=== PATIENT | male | born 1975 | race Two or more races ===

== ENCOUNTER 2025-05-08 07:28 | Inpatient (IN) | payer MEDICAID, OTHER ==
[~2025-05-08] VITALS: Ht 172.7 cm; Wt 80.0 kg
[2025-05-08] VITALS (7 sets, daily range): BP systolic 155; BP diastolic 95; PULSE 74–102; RESP 16–24; TEMP 98.7; O2SAT 94–98
[2025-05-08] MEDS: SODIUM CHLORIDE 0.9% 1,000 ML IV ONE (08:00)
--- NOTE | 2025-05-08 08:04 | ED.PDOC ---
SOB-HPI HPI Comments 49-year-old male with PMHx CVA, HTN presents with a chief complaint of SOB and chest pain. Patient states that his pain is localized to his left chest wall, nonradiating, and describes as sharp. Patient states that he feels like something is "stuck in my throat and its causing me not to breathe". Patient is able to speak in full, complete sentences, is not wheezing or hyperventilating. Patient admits to smoking cigarettes and states that he is homeless. Chief Complaint: Shortness of Breath Time Seen by MD: 07:52 Reviewed notes: Medications, Allergies Information Source: Patient Mode of Arrival: Ambulatory Severity: Moderate Timing: Days Duration: Since onset Context: At Rest PE Risk Factors: None Prehospital treatment: None Quality: Sharp Radiation: No Radiation Past Medical History PAST MEDICAL HISTORY: CVA, HTN Surgical History: Denies all surgeries Family History Family History: Reviewed,noncontributory to illness Social History Smoker: Cigarettes Alcohol: Denies ETOH Use Drugs: Denies Drug Use Lives In: Homeless Constitutional: denies: chills, diaphoresis, fatigue, fever, malaise, sweats, weakness, others EENTM: denies: blurred vision, double vision, ear bleeding, ear discharge, ear drainage, ear pain, ear ringing, eye pain, eye redness, hearing loss, mouth pain, mouth swelling, nasal discharge, nose bleeding, nose congestion, nose pain, photophobia, tearing, throat pain, throat swelling, voice changes, others Respiratory: reports: shortness of breath; denies: cough, hemoptysis, orthopnea, SOB at rest, SOB with excertion, stridor, wheezing, others Cardiovascular: reports: chest pain; denies: dizzy spells, diaphoresis, Dyspnea on exertion, edema, irregular heart beat, left arm pain, lightheadedness, palpitations, PND, syncope, others Gastrointestinal: denies: abdomen distended, abdominal pain, blood streaked bowels, constipated, diarrhea, dysphagia, difficulty swallowing, hematemesis, melena, nausea, poor appetite, poor fluid intake, rectal bleeding, rectal pain, vomiting, others Genitourinary: denies: burning, dysuria, flank pain, frequency, hematuria, incontinence, penile discharge, penile sore, pain, testicle pain, testicle swelling, urgency, others Neurological: denies: dizziness, fainting, headache, left sided numbness, left sided weakness, numbness, paresthesia, pre-existing deficit, right sided numbness, right sided weakness, seizure, speech problems, tingling, tremors, weakness, others Musculoskeletal: denies: back pain, gout, joint pain, joint swelling, muscle pain, muscle stiffness, neck pain, others Integumetry: denies: bruises, change in color, change in hair/nails, dryness, laceration, lesions, lumps, rash, wounds, others Allergic/Immunocompromised: denies: Difficulty Healing, Frequent Infections, Hives, Itching, others Hematologic/Lymphatic: denies: anemia, blood clots, easy bleeding, easy bruising, swollen glands, others Endocrine: denies: excessive hunger, excessive sweating, excessive thirst, excessive urination, flushing, intolerance to cold, intolerance to heat, unexplained weight gain, unexplained weight loss, others Psychiatric: denies: anxiety, bipolar disorder, depression, hopeless, panic disorder, schizophrenia, sleepless, suicidal, others All Other Systems: Reviewed and Negative Physical Exam General Appearance: Mild Distress, Normal HEENT: Normal ENT Inspection, PERRL/EOMI, Pharynx Normal, TMs Normal Neck: Full Range of Motion, Non-Tender, Normal, Normal Inspection Respiratory: Chest Non-Tender, Lungs Clear, No Accessory Muscle Use, No Respiratory Distress, Normal Breath Sounds, Other (PATIENT COMPLAINING OF CHEST PAIN LEFT SHOULDER PAIN AND NECK PAIN) Cardiovascular: No Edema, No JVD, No Murmur, No Gallop, Normal Peripheral Pulses, Regular Rate/Rhythm Breast Exam: Deferred Gastrointestinal: No Organomegaly, Non Tender, No Pulsatile Mass, Normal Bowel Sounds, Soft Genitalia: Deferred Pelvic: Deferred Rectal: Deferred Extremities: No calf tenderness, Normal capillary refill, Normal inspection, Normal range of motion, Non-tender, No pedal edema Musculoskeletal : Apperance: Normal Neurologic: Alert, frame maker II-XII nml as Tested, No Motor Deficits, Normal Affect, Normal Mood, No Sensory Deficits, Other (PATIENT HAD A STROKE WITH LEFT HEMIPARESIS GETTING BETTER) Cerebellar Function: Normal Reflexes: Normal Skin: Dry, Normal Color, Warm Peripheral Pulses: 1+ carotid (R), 1+ carotid (L) Lymphatic: No Adenopathy EKG EKG : Pulse Rate (adult): 102 [place]: Normal Cardiac Rhythm: ST Was a procedure done? Was a procedure done?: No Differential Dx Differential Diagnosis: Anxiety, Myocardial infarction, Pneumonia X-Ray, Labs, Meds, VS Vital Signs Date Time Temp Pulse Resp B/P (MAP) Pulse Ox O2 Delivery O2 Flow Rate FiO2 05/08/25 12:15 155/95 05/08/25 12:14 86 18 155/95 (115) 96 05/08/25 11:30 87 18 97 Room Air 05/08/25 11:30 87 18 157/111 (126) 97 05/08/25 10:00 157/111 05/08/25 08:30 102 05/08/25 07:40 98.7 101 18 174/99 96 98.7 05/08/25 07:35 102 Lab Test 05/08/25 08:11 Range/Units White Blood Count 11.1 H 4.4-10.8 10^3/uL Red Blood Count 3.77 L 4.5-5.90 10^6/uL Hemoglobin 8.9 L 13.5-17.5 g/dL Hematocrit 27.7 L 41.0-53.0 % Mean Corpuscular Volume 73.5 L 80.0-100.0 fL Mean Corpuscular Hemoglobin 23.5 L 28.0-32.0 pg Mean Corpuscular Hemoglobin Concent 32.0 32.0-36.0 g/dL Red Cell Distribution Width 17.7 H 11.8-14.3 % Platelet Count 530 H 140-450 10^3/uL Mean Platelet Volume 7.4 6.9-10.8 fL Neutrophils (%) (Auto) 76.0 37.0-80.0 % Lymphocytes (%) (Auto) 12.5 10.0-50.0 % Monocytes (%) (Auto) 8.5 0.0-12.0 % Eosinophils (%) (Auto) 2.5 0.0-7.0 % Basophils (%) (Auto) 0.5 0.0-2.0 % Neutrophils # (Auto) 8.4 1.6-8.6 10 ^3/uL Lymphocytes # (Auto) 1.4 0.4-5.4 10 ^3/uL Monocytes # (Auto) 0.9 0-1.3 10 ^3/uL Eosinophils # (Auto) 0.3 0-0.8 10 ^3/uL Basophils # (Auto) 0.1 0-0.2 10 ^3/uL Nucleated Red Blood Cells 0.0 % Prothrombin Time 12.4 H 9.3-11.8 sec Prothrombin Time INR 1.19 H 0.9-1.15 Activated Partial Thromboplast Time 32.4 24.5-34.5 SEC D-Dimer, Quantitative 4.70 H 0.0-0.49 mg/L FEU Sodium Level 142 136-145 mmol/L Potassium Level 3.5 3.5-5.1 mmol/L Chloride Level 106 98-107 mmol/L Carbon Dioxide Level 26 20-31 mmol/L Anion Gap 10 5-15 Blood Urea Nitrogen 31 H 9-23 mg/dL Creatinine 3.87 H 0.700-1.30 mg/dL Glomerular Filtration Rate Calc 18 >90 mL/min BUN/Creatinine Ratio 8.0 L 10.0-20.0 Serum Glucose 106 74-106 mg/dL Calcium Level 8.9 8.7-10.4 mg/dL Magnesium Level 1.7 1.6-2.6 mg/dL Total Bilirubin 0.7 0.2-1.0 mg/dL Aspartate Amino Transferase (AST) 15 13-40 U/L Alanine Aminotransferase (ALT) 14 7-40 U/L Alkaline Phosphatase 167 H 46-116 U/L Troponin I High Sensitivity 45 </=54 ng/L Total Protein 7.8 5.7-8.2 g/dL Albumin 4.0 3.2-4.8 g/dL Current Medications Medications (Trade) Dose Ordered Sig/Soraya Route Start Time Stop Time Status Last Admin Aspirin 162 mg ONCE ONCE PO 05/08/25 08:00 05/08/25 08:01 DC 05/08/25 08:00 Nitroglycerin (Ntrostat Sublingual) 0.4 mg Q5MP ONCE SL 05/08/25 10:00 05/08/25 10:01 DC 05/08/25 10:00 Sodium Chloride 1,000 ml @ 150 mls/hr Q6H40M ONCE IV 05/08/25 08:00 05/08/25 14:39 DC 05/08/25 08:00 X-Ray, Labs, Meds, VS Comment Course in the emergency department patient came in because of shortness of breath and chest pain for the past few days patient has a history of CVA and hypertension EKG shows sinus tachycardia at 1:02 [address] CBC [address]41 with 76% neutrophils H&H 8.9 and 27.7 with microcytosis D-dimer elevated at 4.7 INR 1.19 GFR at 18 Magnesium 1.7 Troponin 45 Patient will be admitted for further care Patient with renal insufficiency he will be sent for V/Q scan Patient will be admitted for further care V/Q scan pending Time of 1ST Reevaluation: 08:22 Reevaluation 1ST: Unchanged Time of 2ND Reevaluation: 10:28 Reevaluation 2ND: Unchanged Patient Education/Counseling: Diagnosis, Treatment Family Education/Counseling: Diagnosis, Treatment SEPSIS Sepsis Screen Date sepsis recognized/suspect: May 08, 2025 Time Sepsis recognized/suspect: 742 Recent Procedure: No Respiratory Rate >20: No Heart Rate >90: Yes Temp<36 C (96.8 F) or >38.3 C: No SBP <90 or MAP <65 mmHG: No New Acute Mental Status Change: No Is the patient on CPAP, BIPAP,: No Physician Orders Chest Portable (05/08/25 07:56) Heplock Iv (05/08/25 07:56) Entry Level Assistant Manager (05/08/25 07:56) Blood Pressure (05/08/25 07:56) Nm Vq Scan (05/08/25 09:49) Bilat Lower Dvt (05/08/25 12:31) Vital Signs Date Time Temp Pulse Resp B/P (MAP) Pulse Ox O2 Delivery O2 Flow Rate FiO2 05/08/25 12:15 155/95 05/08/25 12:14 86 18 155/95 (115) 96 05/08/25 11:30 87 18 97 Room Air 05/08/25 11:30 87 18 157/111 (126) 97 05/08/25 10:00 157/111 05/08/25 08:30 102 05/08/25 07:40 98.7 101 18 174/99 96 98.7 05/08/25 07:35 102 Laboratory Tests Test 05/08/25 08:11 White Blood Count 11.1 10^3/uL (4.4-10.8) H Medications Medications Dose Ordered Sig/Soraya Route Start Time Stop Time Status Last Admin Dose Admin Aspirin 162 mg ONCE ONCE PO 05/08/25 08:00 05/08/25 08:01 DC 05/08/25 08:00 Nitroglycerin 0.4 mg Q5MP ONCE SL 05/08/25 10:00 05/08/25 10:01 DC 05/08/25 10:00 Sodium Chloride 1,000 ml @ 150 mls/hr Q6H40M ONCE IV 05/08/25 08:00 05/08/25 14:39 DC 05/08/25 08:00 Departure 1 Departure Time of Disposition: 10:25 Impression: Primary Impression: Acute chest pain Additional Impressions: Microcytic anemia Elevated d-dimer CKD (chronic kidney disease) stage 4, GFR 15-29 ml/min Disposition: ADMITTED INPATIENT Admit to: [facility] Condition: Fair Critical Care Note Critical Care Time?: No Stability Stability form required: No Heart Score Heart Score: Heart Score Response (Comments) Value History Slightly Suspicious 0 EKG Normal 0 Age 45-64 1 Risk Factors 1 or 2 risk factors 1 Troponin Normal limit 0 Total 2 I personally scribed for JONO AGUILAR MD ([email or web address]) on 05/08/25 at 08:04. Electronically submitted by Jean Pierre Urbano ([email or web address]). JONO AGUILAR MD May 08, 2025 08:04
--- NOTE | 2025-05-08 08:23 | ECG ---
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
--- NOTE | 2025-05-08 08:30 | DVH ---
CHEST RADIOGRAPH Indication: CP Technique: Single frontal view of the chest was obtained COMPARISON: None FINDINGS: Lines and Tubes: None Lungs: Multifocal airspace disease Pleura: No effusion. No pneumothorax. Cardiomediastinal contours: Unremarkable Bones: Unremarkable IMPRESSION: Multifocal airspace disease
[2025-05-08 08:50] LABS: Nucleated Red Blood Cells % 0.0 %
[2025-05-08 08:51] LABS: Hematocrit 27.7 % (41.0-53.0); Hemoglobin 8.9 g/dL (13.5-17.5); Mean Corpuscular Hemoglobin 23.5 pg (28.0-32.0); Mean Corpuscular Volume 73.5 fL (80.0-100.0)
[2025-05-08 09:08] LABS: Alanine Aminotransferase 14 U/L (7-40); Albumin 4.0 g/dL (3.2-4.8); Anion Gap 10 (5-15); BUN/Creatinine Ratio 8.0 (10.0-20.0); Bilirubin, Total 0.7 mg/dL (0.2-1.0); Calcium 8.9 mg/dL (8.7-10.4); Carbon Dioxide 26 mmol/L (20-31); Chloride 106 mmol/L (98-107); Glucose 106 mg/dL (74-106); Magnesium 1.7 mg/dL (1.6-2.6); Potassium 3.5 mmol/L (3.5-5.1); Sodium 142 mmol/L (136-145); Total Protein 7.8 g/dL (5.7-8.2)
[2025-05-08 09:09] LABS: Alkaline Phosphatase 167 U/L (46-116); Blood Urea Nitrogen 31 mg/dL (9-23)
[2025-05-08 09:10] LABS: INR 1.19 (0.9-1.15); Partial Thromboplastin Time 32.4 SEC (24.5-34.5); Prothrombin Time 12.4 sec (9.3-11.8)
[2025-05-08] MEDS: NITROGLYCERIN 0.4 MG SL TAB SL ONE (10:00)
--- NOTE | 2025-05-08 13:33 | DVH ---
NUCLEAR MEDICINE VENTILATION/PERFUSION LUNG SCAN. INDICATION: PULMONARY EMBOLISM TECHNIQUE: Following intravenous demonstration of 6 millicuries of technetium 99m MAA, and inhalati on of 40 mCi of Tc 99m DTPA scintigrams were obtained in multiple projections of the lungs. FINDINGS: There is normal uptake of radionuclide on both the ventilation and perfusion portions of the examinat ion. No mismatched perfusion defects are demonstrated. Uptake is normally homogeneous. IMPRESSION: Low probability for PE.
--- NOTE | 2025-05-08 14:17 | DVH ---
CLINICAL HISTORY: Bilateral lower extremity pain, shortness of breath R/O DVT TECHNIQUE: Color and duplex doppler imaging of the bilateral lower extremity veins was performed. Ves suman compression if possible was also performed. WID: COMPARISON: None FINDINGS: Right Lower Extremity: Right common femoral vein: Normal compressibility and flow. Right femoral vein: Normal compressibility and flow. Right popliteal vein: Normal compressibility and flow. A partially compressible peroneal vein is seen in the right calf with linear echogenicities. Proximal calf veins are otherwise normally compressible. Left Lower Extremity: Left common femoral vein: Normal compressibility and flow. Left femoral vein: Normal compressibility and flow. Left popliteal vein: Normal compressibility and flow. Proximal calf veins are normally compressible. IMPRESSION: Subacute to chronic appearing thrombus in the right calf peroneal vein with linear echogenicity withi n the lumen and partially compressible vein. No evidence of DVT in the left lower extremity
[2025-05-08] MEDS ORDERED: NITROGLYCERIN 0.4 MG SL TAB SL PRN (15:45)
--- NOTE | 2025-05-08 16:06 | DVHHPRES ---
History of Present Illness Resident Creating Document: SPENCER FELDMAN RESIDENT History of Present Illness Patient is a 49-year-old male with prior medical history of hypertension and 2 prior CVAs in 2019, who presents to the ED with chief complaint of shortness of breath. Patient and are AOx4, but are poor historians. Per the patient and his , Jessica, patient has had chronic cough with clear expectoration since August, which for the last 3 months has been associated to increasing shortness of breath, clubbing of finger nails, and left chest pain. Yesterday, they state the patient's lips became cyanotic and worsening of chest pain described as sharp pain localized in left chest wall, non-radiating, intensity of 7/10, with no aggravating nor relieving factors, which prompted him to seek medical care. He denies fever, nausea, vomiting, and palpitations. On evaluation in the ED, patient was found in mild distress, afebrile, tachycardic, and hyper tensive. 12 Lead EKG in the ED shows sinus tachycardia. Initial labs show WBCs 11.1, hemoglobin 8.9, hematocrit 27.7, platelets 530, creatinine 3.87, ALP 167, troponins negative, PT 12.4, INR 1.19, and D-dimer 4.7. Chest x-ray shows multifocal airspace disease. Due to presence of chest pain, tachycardia, and elevated D-dimer, V/Q mismatch scan was ordered to evaluate for possible PE, which showed low probability for PE. He is being admitted for further work up and monitoring and will be started on IV antibiotics, IV fluids, and breathing treatments. 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 Past Surgical History: Other (Right tibial fracture repair with possible skin graft) Smoke: <1 pack per day (Smoked 2 packs of cigarettes a day for 20 years, now smokes 4 cigarettes a day) ALCOHOL: none Drugs: None Lives: with Family Domestic Violence: Neg Review of Systems Constitutional: No: Fever, Chills, Sweats, Weakness, Malaise, Other Eyes: No: Pain, Vision change, Conjunctivae inflammation, Eyelid inflammation, Other, Redness ENT: Ear pain Respiratory: Cough, Shortness of breath, Pleuritic Pain, Wheezing Cardiovascular: Chest Pain Gastrointestinal: No: Nausea, Vomiting, Abdominal Pain, Diarrhea, Constipation, Melena, Hematochezia, Other Genitourinary: No Dysuria, No Frequency, No Incontinence, No Hematuria, No Retention, No Other Musculoskeletal: shoulder pain Skin: No: Rash, Lesions, Jaundice, Bruising, Other Neurological: No: Weakness, Numbness, Incoordination, Change in speech, Confusion, Seizures, Other Allergies: Coded Allergies: NO KNOWN ALLERGIES (Unverified , 05/08/25) Medications Current Medications Medications Dose Ordered Sig/Soraya Route Start Time Stop Time Status Last Admin Dose Admin Nitroglycerin 0.4 mg Q5MINP PRN SL 05/08/25 15:45 Morphine Sulfate 2 mg Q30M PRN IV 05/08/25 15:45 Ipratropium [place] 0.5 mg Q6HR NEB 05/08/25 15:45 Albuterol 1.25 mg Q6HR NEB 05/08/25 15:45 Azithromycin 250 ml @ 125 mls/hr DAILY IV 05/09/25 10:00 Ceftriaxone Sodium 50 ml @ 100 mls/hr DAILY@09 IV 05/09/25 09:00 Heparin Sodium/ Dextrose 250 ml @ 11.7 mls/hr [id number] IV 05/08/25 16:00 UNV Nifedipine 30 mg DAILY PO 05/09/25 10:00 UNV Exam Vital Signs Vital Signs Date Time Temp Pulse Resp B/P (MAP) Pulse Ox O2 Delivery O2 Flow Rate FiO2 05/08/25 15:52 98.7 86 18 155/95 96 0.0 21 98.7 05/08/25 11:30 Room Air Exam General: Patient alert and oriented in person place and time. Patient fo llowing commands HEENT: Normocephalic, atraumatic, reactive pupils, EOM intact, pink conjunctiva, non-icteric sclera, pink moist mucous membrane Respiratory/pulmonary: Bilateral chest expansion, no pain on palpation of chest wall, vesicular murmurs present in almost all lung lackey, minor bilateral wheezing in lower lung lackey, no associated crackles. Abdomen: Abdomen nondistended, normal bowel sounds, soft, no pain to palpation in any of the abdominal quadrants, no palpable masses. Extremities: Clubbing of finger nails on both hands, no cyanosis, bilateral lower extremity edema +2, right calf is warm to the touch, deformity of right ankle secondary to previous trauma and surgery Peripheral pulses: normal pulses Skin: No rashes or pruritus Neurological: Intact cranial nerves with no focal neurologic deficits Labs/Xrays Labs Test 05/08/25 08:11 Range/Units White Blood Count 11.1 H 4.4-10.8 10^3/uL Red Blood Count 3.77 L 4.5-5.90 10^6/uL Hemoglobin 8.9 L 13.5-17.5 g/dL Hematocrit 27.7 L 41.0-53.0 % Mean Corpuscular Volume 73.5 L 80.0-100.0 fL Mean Corpuscular Hemoglobin 23.5 L 28.0-32.0 pg Mean Corpuscular Hemoglobin Concent 32.0 32.0-36.0 g/dL Red Cell Distribution Width 17.7 H 11.8-14.3 % Platelet Count 530 H 140-450 10^3/uL Mean Platelet Volume 7.4 6.9-10.8 fL Neutrophils (%) (Auto) 76.0 37.0-80.0 % Lymphocytes (%) (Auto) 12.5 10.0-50.0 % Monocytes (%) (Auto) 8.5 0.0-12.0 % Eosinophils (%) (Auto) 2.5 0.0-7.0 % Basophils (%) (Auto) 0.5 0.0-2.0 % Neutrophils # (Auto) 8.4 1.6-8.6 10 ^3/uL Lymphocytes # (Auto) 1.4 0.4-5.4 10 ^3/uL Monocytes # (Auto) 0.9 0-1.3 10 ^3/uL Eosinophils # (Auto) 0.3 0-0.8 10 ^3/uL Basophils # (Auto) 0.1 0-0.2 10 ^3/uL Nucleated Red Blood Cells 0.0 % Prothrombin Time 12.4 H 9.3-11.8 sec Prothrombin Time INR 1.19 H 0.9-1.15 Activated Partial Thromboplast Time 32.4 24.5-34.5 SEC D-Dimer, Quantitative 4.70 H 0.0-0.49 mg/L FEU Sodium Level 142 136-145 mmol/L Potassium Level 3.5 3.5-5.1 mmol/L Chloride Level 106 98-107 mmol/L Carbon Dioxide Level 26 20-31 mmol/L Anion Gap 10 5-15 Blood Urea Nitrogen 31 H 9-23 mg/dL Creatinine 3.87 H 0.700-1.30 mg/dL Glomerular Filtration Rate Calc 18 >90 mL/min BUN/Creatinine Ratio 8.0 L 10.0-20.0 Serum Glucose 106 74-106 mg/dL Calcium Level 8.9 8.7-10.4 mg/dL Magnesium Level 1.7 1.6-2.6 mg/dL Total Bilirubin 0.7 0.2-1.0 mg/dL Aspartate Amino Transferase (AST) 15 13-40 U/L Alanine Aminotransferase (ALT) 14 7-40 U/L Alkaline Phosphatase 167 H 46-116 U/L Troponin I High Sensitivity 45 </=54 ng/L Total Protein 7.8 5.7-8.2 g/dL Albumin 4.0 3.2-4.8 g/dL SEPSIS Sepsis Screen Date sepsis recognized/suspect: May 08, 2025 Time Sepsis recognized/suspect: 742 Recent Procedure: No Respiratory Rate >20: No Heart Rate >90: Yes Temp<36 C (96.8 F) or >38.3 C: No SBP <90 or MAP <65 mmHG: No New Acute Mental Status Change: No Is the patient on CPAP, BIPAP,: No Physician Orders Nm Vq Scan (05/08/25 09:49) Bilat Lower Dvt (05/08/25 12:31) Admit (05/08/25 15:32) Code Status (05/08/25 15:32) Vital Signs .PER UNIT PROTOCOL (05/08/25 15:32) Review Orders With Adm.Md (05/08/25 15:32) Notify Md Of Changes From Base (05/08/25 15:32) Advance Directive (05/08/25 15:32) Patient Condition (05/08/25 15:32) Allergies (05/08/25 15:32) Nitroglycerin Sublingual (Ntrostat Subli (05/08/25 15:45) Morphine Sulfate Injection (05/08/25 15:45) Oxygen By Nasal Cannula (05/08/25 15:32) Notify Md Of Changes From Base (05/08/25 15:32) Stat Ekg For Chest Pain (05/08/25 15:32) Renal Standard(2gna,3gk,Lopho) (05/08/25 Dinner) Urinalysis (05/08/25 15:32) Drug Screen (05/08/25 15:32) Urine Protein (05/08/25 15:32) Urine Creatinine (05/08/25 15:32) Ipratropium Medneb (Atrovent Medneb) (05/08/25 15:45) Albuterol Medneb (Ventolin Medneb) (05/08/25 15:45) Covid19 Antigen Nava (05/08/25 ) Rapid Influenza A&B (05/08/25 15:32) Azithromycin 500mg/ 250ml (Zithromax 50 (05/08/25 16:30) Azithromycin 500mg/ 250ml (Zithromax 50 (05/09/25 10:00) Ceftriaxone 1gm/50ml D5w (Rocephin) (05/08/25 15:45) Ceftriaxone 1gm/50ml D5w (Rocephin) (05/09/25 09:00) Troponin-I Hs (05/08/25 15:44) Platelet Monitoring (05/08/25 15:51) Vte Protocol Initiated (05/08/25 15:51) Heparin Per Standardized Proce (05/08/25 15:51) Discontinue All Im Injections (05/08/25 15:51) PTPTT (05/08/25 15:51) Complete Blood Count (05/08/25 15:51) Heparin Sodium (Porcine) (05/08/25 16:00) Heparin Drip/D5w 100units/Ml (05/08/25 16:00) Nifedipine Er (Procardia Xl (Time-Releas (05/08/25 16:00) Nifedipine Er (Procardia Xl (Time-Releas (05/09/25 10:00) Hemoglobin A1c (05/08/25 15:56) Lipid Panel (05/08/25 15:56) Thyroid Stimulating Hormone (05/08/25 15:56) Phosphorus (05/08/25 15:56) Magnesium (05/08/25 15:56) Blood Culture (05/08/25 15:56) Mrsa Screen (05/08/25 15:56) Urine Bacterial Culture (05/08/25 15:56) Kidney (05/08/25 15:58) Vital Signs Date Time Temp Pulse Resp B/P (MAP) Pulse Ox O2 Delivery O2 Flow Rate FiO2 05/08/25 15:52 98.7 86 18 155/95 96 0.0 21 98.7 05/08/25 12:15 155/95 05/08/25 12:14 86 18 155/95 (115) 96 05/08/25 11:30 87 18 97 Room Air 05/08/25 11:30 87 18 157/111 (126) 97 05/08/25 10:00 157/111 05/08/25 08:30 102 Laboratory Tests Test 05/08/25 08:11 White Blood Count 11.1 10^3/uL (4.4-10.8) H Medications Medications Dose Ordered Sig/Soraya Route Start Time Stop Time Status Last Admin Dose Admin Aspirin 162 mg ONCE ONCE PO 05/08/25 08:00 05/08/25 08:01 DC 05/08/25 08:00 162 MG Nitroglycerin 0.4 mg Q5MP ONCE SL 05/08/25 10:00 05/08/25 10:01 DC 05/08/25 10:00 0.4 MG Sodium Chloride 1,000 ml @ 150 mls/hr Q6H40M ONCE IV 05/08/25 08:00 05/08/25 14:39 DC 05/08/25 08:00 150 MLS/HR Assessment/Plan Assessment/Plan Assessment and Plan: Possible sepsis, likely due to pneumonia ( Gram-positive/Gram-negative ) -Chest x-ray: Multifocal airspace disease -Ceftriaxone 1 g IV daily -Azithromycin 500 mg IV daily -Blood cultures pending -Sputum cultures pending -Bolus of 150 cc normal saline Questionable COPD, spirometry unavailable, in exacerbation -Albuterol med neb 1.25 mg q.6 hours -Ipratropium med nebs 0.5 mg q.6 hours Acute chest pain, rule out ACS -Echo pending -Morphine 2 mg IV Q 30 p.r.n. -Nitroglycerin 0.4 mg sublingual p.r.n. -Aspirin 162 mg p.o. once Right distal DVT -Lower extremity venous duplex: Subacute to chronic appearing thrombus in the right calf peroneal vein with linear echogenicity within the lumen and partially compressible vein -Heparin drip Possible LIZ likely due to VMN, on questionable CKD, baseline unavaible - Monitor renal function - Avoid nephrotoxic drugs - Renal diet Microcytic anemia -monitor H&H Hypertension, uncontrolled -Nifedipine 30 mg p.o. daily History of CVA History of tobacco use - counseled on cessation of tobacco for over 20 minutes Case discussed with Dr. Martinez Goals of care discussed with the patient and his , Jessica, for over 35 minutes, they state they understand and agree. FULL CODE. Plan discussed with: Patient, Spouse (Jessica) SPENCER FELDMAN RESIDENT May 08, 2025 16:05
[2025-05-08 16:17] LABS: Hematocrit 28.0 % (41.0-53.0); Hemoglobin 9.0 g/dL (13.5-17.5); Mean Corpuscular Hemoglobin 23.7 pg (28.0-32.0); Mean Corpuscular Volume 73.6 fL (80.0-100.0); Nucleated Red Blood Cells % 0.0 %
[2025-05-08 16:31] LABS: Triglycerides 90.0 mg/dL (< 150)
[2025-05-08 16:32] LABS: INR 1.19 (0.9-1.15); Magnesium 1.7 mg/dL (1.6-2.6); Partial Thromboplastin Time 31.2 SEC (24.5-34.5); Prothrombin Time 12.4 sec (9.3-11.8)
[2025-05-08 16:33] LABS: Cholesterol 116.0 mg/dL (< 200)
[2025-05-08 16:34] LABS: HDL Cholesterol 30.0 mg/dL (40-59)
[2025-05-08] MEDS: cefTRIAXone 1GM/50ML D5W 50 ML IV ONE (17:28)
--- NOTE | 2025-05-08 17:40 | DVH ---
EXAM: US KIDNEY INDICATION: ckd TECHNIQUE: Multiple real-time sonographic images of the kidneys and bladder were obtained. COMPARISON: None Findings: Right kidney measures 9.1 cm with normal contours, increased echotexture, and normal cortical thickne ss. Nephrolithiasis. Parapelvic cysts. No evidence of hydronephrosis or solid lesions. Left kidney measures 9.3 cm with normal contours, increased echotexture, and normal cortical thicknes s. Nephrolithiasis. Simple cyst. No evidence of hydronephrosis or solid lesions. Urinary bladder is unremarkable without evidence of abnormal wall thickening, mass, or calculi. Prevo id volume 419.7 mL. Postvoid volume 0 mL. Bilateral pleural effusions. Impression: 1. Increased echogenicity of bilateral kidneys. Correlate for medical renal disease. 2. Bilateral nephrolithiasis and renal cysts. 3. Urinary bladder is unremarkable. 4. Incidentally noted bilateral pleural effusions.
[2025-05-08] MEDS: ALBUTEROL SULF 2.5 MG/0.5ML(0.5%) NEB SOLN NEB SCH (17:57)
[2025-05-08] MEDS: IPRATROPIUM BROM 0.5 MG/2.5ML INH SOL NEB SCH (17:57)
[2025-05-08] MEDS: AZITHROMYCIN 500MG/ 250ML 250 ML IV ONE (18:16)
[2025-05-08] MEDS: HEPARIN SODIUM (PORCINE) 5000 UNITS/ML 1ML VIAL IV ONE (18:32)
[2025-05-08] MEDS: HEPARIN DRIP/D5W 100UNITS/ML 250 ML IV SCH (18:36)
--- NOTE | 2025-05-08 18:47 | CONS ---
Pharmacy Clinical Information: HEPARIN DRIP PER PHARMACY SPOKE TO MILAGROS SMITH REGARDING NEW HEPARIN DRIP ORDER CURRENT aPTT: 05/08/2025 AT 0811: aPTT = 32.4 HEPARIN BOLUS 4000 UNITS IVP X1 PER MD INITIAL HEPARIN DRIP RATE: 1500 UNITS/HR ADMINISTERED ON 05/08 AT 1836 NEXT aPTT: 05/09/2025 AT 0030 MILAGROS SMITH READ BACK INITIAL HEPARIN DRIP RATE 1500 UNITS/HR LYNNE Kincaid May 08, 2025 18:47
[2025-05-08 19:51] LABS: COVID19 ANTIGEN SOFIA FIA NEGATIVE (NEGATIVE)
[2025-05-08 21:48] LABS: Urine Protein, UAD 1+ (Negative)
[2025-05-08 21:58] LABS: Protein, Urine 181.7 mg/dL (1-14)
[2025-05-08 22:04] LABS: Amphetamine Screen, Urine Pos (NEGATIVE); Barbiturate Scree,Urine Neg (NEGATIVE); Benzodiazephine Screen, Urine Neg (NEGATIVE); Cannabinoid Screen, Urine Neg (NEGATIVE); Cocaine Screen, Urine Neg (NEGATIVE); Opiate Scree,Urine Neg (NEGATIVE)
[2025-05-08 22:28] LABS: Phencyclidine Screen, Urine Neg (NEGATIVE)
[2025-05-09] VITALS (11 sets, daily range): BP systolic 125–132; BP diastolic 82–92; PULSE 76–101; RESP 17–25; TEMP 97.6–99.7; O2SAT 91–100
[2025-05-09 00:44] LABS: INR 1.2 (0.9-1.15); Partial Thromboplastin Time 56.6 SEC (24.5-34.5); Prothrombin Time 12.5 sec (9.3-11.8)
[2025-05-09 02:53] LABS: Base Excess -0.8 mmol/L (-2.0-3.0)
[2025-05-09] MEDS: MORPHINE SULFATE INJ 2 MG/ml SYRG IV PRN (04:54)
--- NOTE | 2025-05-09 05:24 | ECG ---
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
[2025-05-09 06:17] LABS: Hematocrit 24.0 % (41.0-53.0); Hemoglobin 7.7 g/dL (13.5-17.5); Mean Corpuscular Hemoglobin 23.7 pg (28.0-32.0); Mean Corpuscular Volume 74.2 fL (80.0-100.0); Nucleated Red Blood Cells % 0.1 %
[2025-05-09 06:59] LABS: Alanine Aminotransferase 18 U/L (7-40); Albumin 3.5 g/dL (3.2-4.8); Anion Gap 12 (5-15); BUN/Creatinine Ratio 9.6 (10.0-20.0); Carbon Dioxide 23 mmol/L (20-31); Chloride 106 mmol/L (98-107); Sodium 141 mmol/L (136-145); Total Protein 6.9 g/dL (5.7-8.2)
[2025-05-09 07:00] LABS: Bilirubin, Total 0.4 mg/dL (0.2-1.0)
[2025-05-09 07:01] LABS: INR 1.19 (0.9-1.15); Partial Thromboplastin Time 50.6 SEC (24.5-34.5); Prothrombin Time 12.4 sec (9.3-11.8)
[2025-05-09 07:05] LABS: Alkaline Phosphatase 202 U/L (46-116); Blood Urea Nitrogen 34 mg/dL (9-23); Calcium 8.1 mg/dL (8.7-10.4); Glucose 122 mg/dL (74-106); Potassium 3.5 mmol/L (3.5-5.1)
[2025-05-09] MEDS: cefTRIAXone 1GM/50ML D5W 50 ML IV SCH (09:00)
[2025-05-09] MEDS: AZITHROMYCIN 500MG/ 250ML 250 ML IV SCH (10:00)
[2025-05-09] MEDS: PANTOPRAZOLE 40 MG TAB PO ONE (11:30)
[2025-05-09 12:41] LABS: INR 1.23 (0.9-1.15); Partial Thromboplastin Time 49.0 SEC (24.5-34.5); Prothrombin Time 12.8 sec (9.3-11.8)
--- NOTE | 2025-05-09 13:46 | CONS ---
Pharmacy Clinical Information: INCREASE HEPARIN DRIP RATE TO 1700 UNITS/HR PER APTT OF 49 (SUBTHERAPEUTIC) NEXT APTT DRAW SCHEDULED FOR 1999 PER RX PROTOCOL JAXON HA PHARMACIST May 09, 2025 13:46
[2025-05-09] MEDS: HEPARIN DRIP/D5W 100UNITS/ML 250 ML IV SCH (14:53)
--- NOTE | 2025-05-09 16:57 | DVHINCON2 ---
Date Seen: May 09, 2025 Referring Physician MD Corey Reason for Consultation Suspected CHF History of Present Illness This is a 49-year-old man who presented to the emergency room with a chief complaint of shortness of breath for four months. The patient complains of progressive shortness of breath associated with PND, WOOD, orthopnea, and chest pain triggered by cough and described as a sharp sensation. The patient denies any past medical history, nevertheless he has never seen a PCP. He admits to a longstanding history methamphetamine abuse. Denies family history for cardiovascular disease. Multiple 12 lead electrocardiograms revealed a sinus tachycardia rhythm suggestive of left ventricular hypertrophy and anterolateral/septal T-wave inversion. Serial troponin levels are negative. Past Medical History Past medical history reviewed. No other significant than mentioned above. Past Surgical History Right ankle Family History Family history reviewed. Not significant for cardiovascular disease. Social History Denies the use of alcohol. Smokes 4 cigarettes per day. Admits to a longstanding history of methamphetamine abuse. Allergies: Coded Allergies: NO KNOWN ALLERGIES (Unverified , 05/08/25) Home Meds Denies any home medications. Current Medications Current Medications Medications (Trade) Dose Ordered Sig/Soraya Route PRN Reason Start Time Stop Time Status Last Admin Azithromycin 250 ml @ 125 mls/hr DAILY IV 05/09/25 10:00 05/09/25 10:00 Ceftriaxone Sodium 50 ml @ 100 mls/hr DAILY@09 IV 05/09/25 09:00 05/09/25 09:00 Nifedipine (Procardia Xl (Time-Release)) 30 mg DAILY PO 05/09/25 10:00 05/09/25 11:32 DC 05/09/25 10:00 Pantoprazole Sodium (Protonix Tablet) 40 mg DAILY@0600 PO 05/10/25 06:00 Metoprolol Succinate (Toprol Xl) 25 mg DAILY PO 05/10/25 10:00 Heparin Sodium/ Dextrose 250 ml @ 17 mls/hr [id number] IV 05/09/25 13:45 05/09/25 14:53 Review of Systems Constitutional: No symptom reported Ears, Nose, & Throat: No symptom reported Eyes: No symptom reported Neurological: No symptoms reported Pulmonary/Respiratory: SOB, PND, WOOD Cardiovascular: No symptom reported Gastrointestinal: No symptom reported Genitourinary: No symptom reported Musculoskeletal: No symptom reported Skin: No symptom reported Psychiatric: No symptom reported Endocrine: No symptom reported Hemotologic/Lymphatic: No symptom reported Vital Signs Vital Signs Date Time Temp Pulse Resp B/P (MAP) Pulse Ox O2 Delivery O2 Flow Rate FiO2 05/09/25 16:00 90 30 134/85 (101) 95 05/09/25 11:10 Nasal Cannula 2.0 05/09/25 11:10 28 05/09/25 08:00 98.4 98.4 Physical Exam General Appearance: Cooperative. Unkept. Moderate SOB Head Exam: Normal inspection Neck Exam: Normal inspection. Non-tender. Normal alignment Pulmonary/Respiratory: Chest non-tender. Crackles to bilateral breath sounds Cardiovascular/Chest: Regular rate and rhythm. S1, S2. Sinus rhythm with LVH. No murmurs. + JVD. Peripheral Pulses: 2+ Radial (R). 2+ Radial (L). 2+ Pedal (R). 2+ Pedal (L) Abdominal Exam: Normal bowel sounds. Soft. Nontender. No hepatospenomegaly. No masses Ankle Exam: Positive pitting ankle edema ++ Lower extremities: Positive pitting lower extremity edema ++ Neuro/Mental Status: A&O x4. Coherent Thoughts/Psych: Normal thought pattern. Appropriate mood and affect. Good judgement and insight Appearance: Moderate SOB Skin Exam: Hyperpigmentation to right ankle area. Otherwise normal color. Warm. Dry Labs/Diagnostic Data Labs Test 05/09/25 12:00 05/09/25 02:30 05/09/25 00:20 05/08/25 21:24 Range/Units Prothrombin Time 12.8 H 9.3-11.8 sec Prothrombin Time INR 1.23 H 0.9-1.15 Activated Partial Thromboplast Time 49.0 H 24.5-34.5 SEC Blood Gas Specimen Type Arterial Blood Gas Sample Site Right radial Blood Gas Patient Temperature 37.0 Arterial Blood Date Drawn [id number] Arterial Blood pH 7.462 H 7.350-7.450 Arterial Blood Partial Pressure CO2 32.5 L 35.0-48.0 mmHg Arterial Blood Partial Pressure O2 63.1 L 83.0-108.0 mmHg Arterial Blood HCO3 22.7 21.0-28.0 mmol/L Arterial Blood Oxygen Saturation 92.2 L 94.0-98.0 % Arterial Blood Base Excess -0.8 -2.0-3.0 mmol/L Arterial Blood Oxyhemoglobin 90.3 L 94.0-98.0 % Arterial Blood Carboxyhemoglobin 1.3 0.5-1.5 % Arterial Blood Methemoglobin 0.8 0.0-1.5 % Mynor Test Yes Blood Gas Total Hemoglobin 8.50 L 13.5-17.5 g/dL Blood Gas Liter Flow 5.00 Blood Gas Modality Nasal cannula FiO2 % 40.0 White Blood Count 11.2 H 4.4-10.8 10^3/uL Red Blood Count 3.24 L 4.5-5.90 10^6/uL Hemoglobin 7.7 L 13.5-17.5 g/dL Hematocrit 24.0 #L 41.0-53.0 % Mean Corpuscular Volume 74.2 L 80.0-100.0 fL Mean Corpuscular Hemoglobin 23.7 L 28.0-32.0 pg Mean Corpuscular Hemoglobin Concent 32.0 32.0-36.0 g/dL Red Cell Distribution Width 18.0 H 11.8-14.3 % Platelet Count 457 H 140-450 10^3/uL Mean Platelet Volume 8.1 6.9-10.8 fL Neutrophils (%) (Auto) 73.5 37.0-80.0 % Lymphocytes (%) (Auto) 14.9 10.0-50.0 % Monocytes (%) (Auto) 8.9 0.0-12.0 % Eosinophils (%) (Auto) 2.2 0.0-7.0 % Basophils (%) (Auto) 0.5 0.0-2.0 % Neutrophils # (Auto) 8.3 1.6-8.6 10 ^3/uL Lymphocytes # (Auto) 1.7 0.4-5.4 10 ^3/uL Monocytes # (Auto) 1.0 0-1.3 10 ^3/uL Eosinophils # (Auto) 0.2 0-0.8 10 ^3/uL Basophils # (Auto) 0.1 0-0.2 10 ^3/uL Nucleated Red Blood Cells 0.1 % Sodium Level 141 136-145 mmol/L Potassium Level 3.5 3.5-5.1 mmol/L Chloride Level 106 98-107 mmol/L Carbon Dioxide Level 23 20-31 mmol/L Anion Gap 12 5-15 Blood Urea Nitrogen 34 H 9-23 mg/dL Creatinine 3.53 H 0.700-1.30 mg/dL Glomerular Filtration Rate Calc 20 >90 mL/min BUN/Creatinine Ratio 9.6 L 10.0-20.0 Serum Glucose 122 H 74-106 mg/dL Calcium Level 8.1 L 8.7-10.4 mg/dL Total Bilirubin 0.4 0.2-1.0 mg/dL Aspartate Amino Transferase (AST) 37 13-40 U/L Alanine Aminotransferase (ALT) 18 7-40 U/L Alkaline Phosphatase 202 H 46-116 U/L Creatine Kinase 104 46-171 U/L Troponin I High Sensitivity 43 </=54 ng/L Total Protein 6.9 5.7-8.2 g/dL Albumin 3.5 3.2-4.8 g/dL Urine Color Yellow Yellow Urine Clarity Turbid H Clear Urine pH 6.0 5.0-9.0 Urine Specific [place] 1.017 1.001-1.035 Urine Protein 1+ H Negative Urine Ketones Negative Negative Urine Blood Trace H Negative /uL Urine Nitrite Negative Negative Urine Bilirubin Negative Negative Urine Urobilinogen 2 H Negative mg/dL Urine Leukocyte Esterase Negative Negative /uL Urine RBC 9 0 - 3 /hpf Urine Microscopic WBC 7 H 0-3 /HPF Urine Squamous Epithelial Cells Few <5 /hpf Urine Bacteria Few H None Seen /hpf Urine Mucus Few None Seen Urine Sperm Present None Seen /hpf Urine Creatinine 147.06 H 30.0-125.0 mg/dL Urine Glucose Normal Normal mg/dL Urine Total Protein 181.7 H 1-14 mg/dL Urine Opiates Screen Neg NEGATIVE Urine Fentanyl Screen Neg NEGATIVE Urine Barbiturates Screen Neg NEGATIVE Urine Phencyclidine Screen Neg NEGATIVE Urine Amphetamines Screen Pos NEGATIVE Urine Benzodiazepines Screen Neg NEGATIVE Urine Cocaine Screen Neg NEGATIVE Urine Cannabinoids Screen Neg NEGATIVE Test 05/08/25 18:05 05/08/25 16:01 05/08/25 08:11 Range/Units Influenza Type A Antigen Negative Negative Influenza Type B Antigen Negative Negative SARS-CoV-2 Antigen (Rapid) Negative NEGATIVE Hemoglobin A1c 5.5 <5.7 % A1C Phosphorus Level 3.5 2.4-5.1 mg/dL Magnesium Level 1.7 1.6-2.6 mg/dL B-Type Natriuretic Peptide 1109.17 0-100 pg/mL Triglycerides Level 90 < 150 mg/dL Cholesterol Level 116 < 200 mg/dL LDL Cholesterol 78 < 100 mg/dL HDL Cholesterol 30 L 40-59 mg/dL Thyroid Stimulating Hormone (TSH) 1.01 0.55-4.78 uIU/mL D-Dimer, Quantitative 4.70 H 0.0-0.49 mg/L FEU Microbiology Date/Time Source Procedure Growth Status 05/08/25 21:24 Voided Urine Urine Culture - Preliminary Resulted Assessment Suspected bilateral pneumonia Acute on chronic decompensated HFrEF, newly diagnosed, NYHA Class IV 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 Daniels) The patient presents with a newly diagnosed cardiomyopathy. Initiate dobutamine drip at a set rate and avoid BBs at this time. Initiate rest of GDMT for HFrEF with optimal renal function. Initiate preload reduction, strict I&Os, daily weight, and maintain fluid restriction. Monitor H&H closely. Currently on Heparin drip. Pending Vascular/Nephrology consultations. Monitor ECG changes closely and notify. Rest of plan per clinical course. Thank you for allowing us to participate in this patient's care. Please call if you have any questions or concerns. This medical document was created using an electronic medical record system with voice recognition software and computerized dictation system. Although this document has been carefully reviewed, there might still be some phonetic and typographical errors. Occasional wrong-word or ``sound-alike substitutions may have occurred due to the inherent limitations of voice recognition software. These areas are purely typographical due to imperfections of the software programs and do not reflect any compromise in the patient's medical care. Please read the chart carefully and recognize, using context, where these substitutions have occurred. Plan discussed with: Patient, Other NYHA Physical activity limitations: Class4(Severe)discomfort Date of Service: May 09, 2025 Billing Provider: ROSETTA CISNEROS Cardiology Common Codes: [id number] INP/OBS CARE (High) ROSETTA CISNEROS May 09, 2025 16:57
--- NOTE | 2025-05-09 17:09 | DVHINCON2 ---
Date of service: May 09, 2025 Referring Physician Hospitalist Reason for Consultation Acute kidney injury History of Present Illness 49-year-old male with past medical history of hypertension, stroke presents to the hospital brought in by family due to complaints of shortness of breath. Patient noted to have right lower extremity swollen received the ultrasound which showed DVT. Subsequently was scanned via V/Q scan was negative for pulmonary embolism. Nephrology was consulted due to abnormal creatinine level 3.8. No previous records in patient denies any previous history of kidney disease. Patient has not ultrasound which shows kidney stones. And patient's d rug screen positive for methamphetamines Allergies: Coded Allergies: NO KNOWN ALLERGIES (Unverified , 05/08/25) Current Medications Current Medications Medications (Trade) Dose Ordered Sig/Soraya Route PRN Reason Start Time Stop Time Status Last Admin Azithromycin 250 ml @ 125 mls/hr DAILY IV 05/09/25 10:00 05/09/25 10:00 Ceftriaxone Sodium 50 ml @ 100 mls/hr DAILY@09 IV 05/09/25 09:00 05/09/25 09:00 Nifedipine (Procardia Xl (Time-Release)) 30 mg DAILY PO 05/09/25 10:00 05/09/25 11:32 DC 05/09/25 10:00 Pantoprazole Sodium (Protonix Tablet) 40 mg DAILY@0600 PO 05/10/25 06:00 Metoprolol Succinate (Toprol Xl) 25 mg DAILY PO 05/10/25 10:00 05/09/25 16:39 DC Heparin Sodium/ Dextrose 250 ml @ 17 mls/hr [id number] IV 05/09/25 13:45 05/09/25 14:53 Dobutamine HCl/ Dextrose 250 ml @ 12.608 mls/ hr [id number] IV 05/09/25 16:45 Furosemide (Lasix Injection) 40 mg BIDD IV 05/09/25 18:00 Family History: FH: chronic renal disease FH: chronic renal insufficiency H&P Exam Vital Signs/I&O Vital Sign Date Time Temp Pulse Resp B/P (MAP) Pulse Ox O2 Delivery O2 Flow Rate FiO2 05/09/25 16:00 90 30 134/85 (101) 95 05/09/25 11:10 Nasal Cannula 2.0 05/09/25 11:10 28 05/09/25 08:00 98.4 98.4 Intake and Output 05/08/25 05/09/25 19:00 07:00 Intake Total 50 ml 430 ml Output Total 250 ml Balance 50 ml 180 ml Intake IV Total 50 ml 430 ml Output Urine Total 250 ml # Voids 1 Physical Exam Middle-aged male appears disheveled and weak Arousable however appears disheveled Not in overt distress Facial bruising Right leg bruising and swelling With pitting edema Labs/Diagnostic Data Labs/Diagnostic Data Laboratory Tests Test 05/09/25 12:00 05/09/25 06:13 05/09/25 02:30 05/09/25 00:20 Range/Units Prothrombin Time 12.8 H 12.4 H 12.5 H 9.3-11.8 sec Prothrombin Time INR 1.23 H 1.19 H 1.20 H 0.9-1.15 Activated Partial Thromboplast Time 49.0 H 50.6 H 56.6 H 24.5-34.5 SEC Blood Gas Specimen Type Arterial Blood Gas Sample Site Right radial Blood Gas Patient Temperature 37.0 Arterial Blood Date Drawn [id number] Arterial Blood pH 7.462 H 7.350-7.450 Arterial Blood Partial Pressure CO2 32.5 L 35.0-48.0 mmHg Arterial Blood Partial Pressure O2 63.1 L 83.0-108.0 mmHg Arterial Blood HCO3 22.7 21.0-28.0 mmol/L Arterial Blood Oxygen Saturation 92.2 L 94.0-98.0 % Arterial Blood Base Excess -0.8 -2.0-3.0 mmol/L Arterial Blood Oxyhemoglobin 90.3 L 94.0-98.0 % Arterial Blood Carboxyhemoglobin 1.3 0.5-1.5 % Arterial Blood Methemoglobin 0.8 0.0-1.5 % Mynor Test Yes Blood Gas Total Hemoglobin 8.50 L 13.5-17.5 g/dL Blood Gas Liter Flow 5.00 Blood Gas Modality Nasal cannula FiO2 % 40.0 White Blood Count 11.2 H 4.4-10.8 10^3/uL Red Blood Count 3.24 L 4.5-5.90 10^6/uL Hemoglobin 7.7 L 13.5-17.5 g/dL Hematocrit 24.0 #L 41.0-53.0 % Mean Corpuscular Volume 74.2 L 80.0-100.0 fL Mean Corpuscular Hemoglobin 23.7 L 28.0-32.0 pg Mean Corpuscular Hemoglobin Concent 32.0 32.0-36.0 g/dL Red Cell Distribution Width 18.0 H 11.8-14.3 % Platelet Count 457 H 140-450 10^3/uL Mean Platelet Volume 8.1 6.9-10.8 fL Neutrophils (%) (Auto) 73.5 37.0-80.0 % Lymphocytes (%) (Auto) 14.9 10.0-50.0 % Monocytes (%) (Auto) 8.9 0.0-12.0 % Eosinophils (%) (Auto) 2.2 0.0-7.0 % Basophils (%) (Auto) 0.5 0.0-2.0 % Neutrophils # (Auto) 8.3 1.6-8.6 10 ^3/uL Lymphocytes # (Auto) 1.7 0.4-5.4 10 ^3/uL Monocytes # (Auto) 1.0 0-1.3 10 ^3/uL Eosinophils # (Auto) 0.2 0-0.8 10 ^3/uL Basophils # (Auto) 0.1 0-0.2 10 ^3/uL Nucleated Red Blood Cells 0.1 % Sodium Level 141 136-145 mmol/L Potassium Level 3.5 3.5-5.1 mmol/L Chloride Level 106 98-107 mmol/L Carbon Dioxide Level 23 20-31 mmol/L Anion Gap 12 5-15 Blood Urea Nitrogen 34 H 9-23 mg/dL Creatinine 3.53 H 0.700-1.30 mg/dL Glomerular Filtration Rate Calc 20 >90 mL/min BUN/Creatinine Ratio 9.6 L 10.0-20.0 Serum Glucose 122 H 74-106 mg/dL Calcium Level 8.1 L 8.7-10.4 mg/dL Total Bilirubin 0.4 0.2-1.0 mg/dL Aspartate Amino Transferase (AST) 37 13-40 U/L Alanine Aminotransferase (ALT) 18 7-40 U/L Alkaline Phosphatase 202 H 46-116 U/L Creatine Kinase 104 46-171 U/L Troponin I High Sensitivity 43 </=54 ng/L Total Protein 6.9 5.7-8.2 g/dL Albumin 3.5 3.2-4.8 g/dL Test 05/08/25 21:24 05/08/25 18:05 05/08/25 16:01 05/08/25 08:11 Range/Units Urine Color Yellow Yellow Urine Clarity Turbid H Clear Urine pH 6.0 5.0-9.0 Urine Specific [place] 1.017 1.001-1.035 Urine Protein 1+ H Negative Urine Ketones Negative Negative Urine Blood Trace H Negative /uL Urine Nitrite Negative Negative Urine Bilirubin Negative Negative Urine Urobilinogen 2 H Negative mg/dL Urine Leukocyte Esterase Negative Negative /uL Urine RBC 9 0 - 3 /hpf Urine Microscopic WBC 7 H 0-3 /HPF Urine Squamous Epithelial Cells Few <5 /hpf Urine Bacteria Few H None Seen /hpf Urine Mucus Few None Seen Urine Sperm Present None Seen /hpf Urine Creatinine 147.06 H 30.0-125.0 mg/dL Urine Glucose Normal Normal mg/dL Urine Total Protein 181.7 H 1-14 mg/dL Urine Opiates Screen Neg NEGATIVE Urine Fentanyl Screen Neg NEGATIVE Urine Barbiturates Screen Neg NEGATIVE Urine Phencyclidine Screen Neg NEGATIVE Urine Amphetamines Screen Pos NEGATIVE Urine Benzodiazepines Screen Neg NEGATIVE Urine Cocaine Screen Neg NEGATIVE Urine Cannabinoids Screen Neg NEGATIVE Influenza Type A Antigen Negative Negative Influenza Type B Antigen Negative Negative SARS-CoV-2 Antigen (Rapid) Negative NEGATIVE White Blood Count 9.7 11.1 H 4.4-10.8 10^3/uL Red Blood Count 3.80 L 3.77 L 4.5-5.90 10^6/uL Hemoglobin 9.0 L 8.9 L 13.5-17.5 g/dL Hematocrit 28.0 L 27.7 L 41.0-53.0 % Mean Corpuscular Volume 73.6 L 73.5 L 80.0-100.0 fL Mean Corpuscular Hemoglobin 23.7 L 23.5 L 28.0-32.0 pg Mean Corpuscular Hemoglobin Concent 32.1 32.0 32.0-36.0 g/dL Red Cell Distribution Width 17.6 H 17.7 H 11.8-14.3 % Platelet Count 556 H 530 H 140-450 10^3/uL Mean Platelet Volume 7.3 7.4 6.9-10.8 fL Neutrophils (%) (Auto) 75.4 76.0 37.0-80.0 % Lymphocytes (%) (Auto) 13.2 12.5 10.0-50.0 % Monocytes (%) (Auto) 8.5 8.5 0.0-12.0 % Eosinophils (%) (Auto) 2.4 2.5 0.0-7.0 % Basophils (%) (Auto) 0.5 0.5 0.0-2.0 % Neutrophils # (Auto) 7.3 8.4 1.6-8.6 10 ^3/uL Lymphocytes # (Auto) 1.3 1.4 0.4-5.4 10 ^3/uL Monocytes # (Auto) 0.8 0.9 0-1.3 10 ^3/uL Eosinophils # (Auto) 0.2 0.3 0-0.8 10 ^3/uL Basophils # (Auto) 0 0.1 0-0.2 10 ^3/uL Nucleated Red Blood Cells 0.0 0.0 % Prothrombin Time 12.4 H 12.4 H 9.3-11.8 sec Prothrombin Time INR 1.19 H 1.19 H 0.9-1.15 Activated Partial Thromboplast Time 31.2 32.4 24.5-34.5 SEC Hemoglobin A1c 5.5 <5.7 % A1C Phosphorus Level 3.5 2.4-5.1 mg/dL Magnesium Level 1.7 1.7 1.6-2.6 mg/dL Troponin I High Sensitivity 40 45 </=54 ng/L B-Type Natriuretic Peptide 1109.17 0-100 pg/mL Triglycerides Level 90 < 150 mg/dL Cholesterol Level 116 < 200 mg/dL LDL Cholesterol 78 < 100 mg/dL HDL Cholesterol 30 L 40-59 mg/dL Thyroid Stimulating Hormone (TSH) 1.01 0.55-4.78 uIU/mL D-Dimer, Quantitative 4.70 H 0.0-0.49 mg/L FEU Sodium Level 142 136-145 mmol/L Potassium Level 3.5 3.5-5.1 mmol/L Chloride Level 106 98-107 mmol/L Carbon Dioxide Level 26 20-31 mmol/L Anion Gap 10 5-15 Blood Urea Nitrogen 31 H 9-23 mg/dL Creatinine 3.87 H 0.700-1.30 mg/dL Glomerular Filtration Rate Calc 18 >90 mL/min BUN/Creatinine Ratio 8.0 L 10.0-20.0 Serum Glucose 106 74-106 mg/dL Calcium Level 8.9 8.7-10.4 mg/dL Total Bilirubin 0.7 0.2-1.0 mg/dL Aspartate Amino Transferase (AST) 15 13-40 U/L Alanine Aminotransferase (ALT) 14 7-40 U/L Alkaline Phosphatase 167 H 46-116 U/L Total Protein 7.8 5.7-8.2 g/dL Albumin 4.0 3.2-4.8 g/dL Assessment 41-year-old male with past medical history of stroke presents to the hospital complaining of weakness was found to have right lower extremity DVT and acute renal failure Acute kidney injury hemodynamically mediated Chronic kidney disease unspecified most likely advanced stage however baseline is unknown Right DVT Methamphetamine acute use Elevated BNP and pleural effusion highly likely congestive heart failure Bilateral nonobstructing kidney stones Anemia due to chronic kidney disease Low-salt diet Fluid restriction Agree with diuretic therapy q.12 hours Record urinary output Anemia likely due to blood loss and kidney disease, recommend iron panel and Epogen injections Renal diet No emergent indication for dialysis at this time however patient will require close monitoring and close electrolyte corrections. care time 56mins Plan discussed with: Patient ASHU ROD MD May 09, 2025 17:09
[2025-05-09 18:05] LABS: Iron 13.0 ug/dL (65-175); Total Iron Binding Capacity 196.0 ug/dL (250-425)
[2025-05-09 18:05] LABS: Hematocrit 25.6 % (41.0-53.0); Hemoglobin 8.3 g/dL (13.5-17.5)
[2025-05-09] MEDS: FUROSEMIDE 40 MG/4 ML VIAL IV SCH (18:05)
[2025-05-09] MEDS: DOBUTamine 1000MCG/ML 250 ML IV SCH (18:06)
--- NOTE | 2025-05-09 18:16 | DVHPNRES ---
Progress Note Date Seen: May 09, 2025 Resident Creating Document: SPENCER FELDMAN RESIDENT Medical Necessity Reason Pt with a Central, PICC or Fol: No Subjective Review of Systems Patient is a 49-year-old male with prior medical history of hypertension and 2 prior CVAs in 2019, who presents to the ED with chief complaint of shortness of breath. Per the patient and his , Jessica, patient has had chronic cough with clear expectoration since August, which for the last 3 months has been associated to increasing shortness of breath, clubbing of finger nails, and left chest pain. Yesterday, they state the patient's lips became cyanotic and worsening of chest pain described as sharp pain localized in left chest wall, non-radiating, intensity of 7/10, with no aggravating nor relieving factors, which prompted him to seek medical care. He denies fever, nausea, vomiting, and palpitations. On evaluation in the ED, patient was found in mild distress, afebrile, tachycardic, and hypertensive. 12 Lead EKG in the ED shows sinus tachycardia. Initial labs show WBCs 11.1, hemoglobin 8.9, hematocrit 27.7, platelets 530, creatinine 3.87, ALP 167, troponins negative, PT 12.4, INR 1.19, and D-dimer 4.7. Chest x-ray shows multifocal airspace disease. Due to presence of chest pain, tachycardia, and elevated D-dimer, V/Q mismatch scan was ordered to evaluate for possible PE, which showed low probability for PE. lower extremity venous duplex ultrasound shows presence of subacute to chronic appearing thrombus in the right calf peroneal vein with linear echogenicity within the lumen and partially compressible vein. He is being admitted for further work up and monitoring and will be started on IV antibiotics, IV fluids, breathing treatments , and heparin. Patient seen at bedside. He is AOx4, states better, chest pain and shortness of breath have improved. Patient continues to complain of cough. Overnight, he was placed on oxygen via nasal cannula, initial evaluation he was found to be on 4 L. he was subsequently lower to 2 L and is tolerating. Follow-up labs are significant for WBC 11.2, hemoglobin 7.7, hematocrit 24, 3.35, BUN 34, BNP 1109.17, and UDS positive for amphetamines. The patient was evaluated by cardiology who initiated dobutamine drip, and recommend avoidance of beta blockers at this time, initiation of GDM T with optimal renal function, initiation of preload reduction, strict I's and O's, and maintenance of fluid restriction. Patient was evaluated by Nephrology who stated there is no emergent indication for dialysis at this time, recommend low-salt diet, fluid restriction, diuretic therapy q.12 hours if necessary, and monitoring of urinary output. Currently pending read of echocardiogram. This might have been made to therapy. We will continue to monitor. Objective vital signs Vital Sign Date Time Temp Pulse Resp B/P (MAP) Pulse Ox O2 Delivery O2 Flow Rate FiO2 05/09/25 18:06 128/85 05/09/25 17:08 97.6 96 20 98 97.6 05/09/25 16:02 Nasal Cannula* 2 28 Total Intake and Output 05/08/25 05/08/25 05/09/25 15:00 23:00 07:00 Intake Total 360 ml 120 ml Output Total 250 ml Balance 110 ml 120 ml medications Current Medications Medications Dose Ordered Sig/Soraya Route Start Time Stop Time Status Last Admin Dose Admin Nitroglycerin 0.4 mg Q5MINP PRN SL 05/08/25 15:45 Morphine Sulfate 2 mg Q30M PRN IV 05/08/25 15:45 05/09/25 04:54 2 MG Ipratropium [place] 0.5 mg Q6HR NEB 05/08/25 15:45 05/09/25 11:10 0.5 MG Albuterol 1.25 mg Q6HR NEB 05/08/25 15:45 05/09/25 11:10 1.25 MG Azithromycin 250 ml @ 125 mls/hr DAILY IV 05/09/25 10:00 05/09/25 10:00 125 MLS/HR Ceftriaxone Sodium 50 ml @ 100 mls/hr DAILY@09 IV 05/09/25 09:00 05/09/25 09:00 100 MLS/HR Pantoprazole Sodium 40 mg DAILY@0600 PO 05/10/25 06:00 Heparin Sodium/ Dextrose 250 ml @ 17 mls/hr [id number] IV 05/09/25 13:45 05/09/25 14:53 17 MLS/HR Dobutamine HCl/ Dextrose 250 ml @ 12.608 mls/ hr [id number] IV 05/09/25 16:45 05/09/25 18:06 12.608 MLS/HR Furosemide 40 mg BIDD IV 05/09/25 18:00 05/09/25 18:05 40 MG Examination General: Patient alert and oriented in person place and time. Patient following commands HEENT: Normocephalic, atraumatic, reactive pupils, EOM intact, pink conjunctiva, non-icteric sclera, pink moist mucous membrane Respiratory/pulmonary: Bilateral chest expansion, no pain on palpation of chest wall, vesicular murmurs present in almost all lung lackey, bilateral wheezing in lower lung lackey, no associated crackles. Abdomen: Abdomen nondistended, normal bowel sounds, soft, no pain to palpation in any of the abdominal quadrants, no palpable masses. Cardiovascular: Normal RRR, normal S1 and S2 Extremities: Clubbing of finger nails on both hands, no cyanosis, bilateral lower extremity edema +2, right calf is warm to the touch, deformity of right ankle secondary to previous trauma and surgery Peripheral pulses: normal pulses Skin: No rashes or pruritus Neurological: Intact cranial nerves with no focal neurologic deficits laboratory and microbiology Laboratory Tests 05/09/25 17:59 05/09/25 00:20 Test 05/09/25 00:20 Range/Units Serum Glucose 122 H 74-106 mg/dL Microbiology Date/Time Source Procedure Growth Status 05/08/25 21:24 Voided Urine Urine Culture - Preliminary Resulted 05/08/25 17:10 Blood Blood Culture - Preliminary NO GROWTH AFTER 24 HOURS OF INCUBATION. Resulted Problem List/Assessment/Plan Problem List/Assessment/Plan Assessment and Plan: Possible sepsis, likely due to pneumonia ( Gram-positive/Gram-negative ) -Chest x-ray: Multifocal airspace disease -Ceftriaxone 1 g IV daily -Azithromycin 500 mg IV daily -Blood cultures pending -Sputum cultures pending -Bolus of 150 cc normal saline Possible Acute on Chronic HFrEF -Dobutamine drip -Initiate GDMT when renal function permits -Strict Is and Os -Pending results of echocardiogram Drug induced cardiomyopathy Questionable COPD, spirometry unavailable, in exacerbation -Albuterol med neb 1.25 mg q.6 hours -Ipratropium med nebs 0.5 mg q.6 hours Acute chest pain, rule out ACS -Echo pending -Morphine 2 mg IV Q 30 p.r.n. -Nitroglycerin 0.4 mg sublingual p.r.n. -Aspirin 162 mg p.o. once Right distal DVT -Lower extremity venous duplex: Subacute to chronic appearing thrombus in the right calf peroneal vein with linear echogenicity within the lumen and partially compressible vein -Heparin drip, discontinued -Eliquis 10 mg PO Possible LIZ likely due to VMN, on questionable CKD, baseline unavailable - Monitor renal function - Avoid nephrotoxic drugs - Renal diet Microcytic anemia, likely of chronic disease due to above -Monitor H&H -Iron panel ordered Hypertension, uncontrolled -Nifedipine 30 mg p.o. daily, discontinued -Metoprolol, discontinued per cardiology recommendations History of CVA History of tobacco use - counseled on cessation of tobacco for over 20 minutes Medical noncompliance Case discussed with Dr. Martinez Goals of care discussed with the patient and his , Jessica, for over 35 minutes, they state they understand and agree. FULL CODE. Plan discussed with: Patient, Spouse (Jessica) My Orders My Orders Orders - SPENCER FELDMAN Procedure Category Date Status Time Transfer Orders XFER 05/08/25 Transmitted 18:22 * Cardiology Consult CONS 05/09/25 Transmitted 11:27 Consult CONS 05/09/25 Transmitted Vascular/Endovascular 11:27 Pantoprazole Tablet PHA 05/10/25 In Process (Protonix Tablet) 06:00 Respiratory Culture FELIPE 05/09/25 Logged W/ Gs 11:27 Metoprolol Xl PHA 05/10/25 In Process Succinate (Toprol Xl) 10:00 Date of Service: May 09, 2025 Billing Provider: MARIBEL MARTINEZ MD Common Visit Codes: [id number] INP/OBS CARE(HIGH) Secondary Visit Codes: [id number] CARE PLAN 30 MINUTES SPENCER FELDMAN May 09, 2025 18:16 MARIBEL MARTINEZ MD May 12, 2025 22:15
[2025-05-09 19:36] LABS: Iron 11.0 ug/dL (65-175); Total Iron Binding Capacity 197.0 ug/dL (250-425)
--- NOTE | 2025-05-09 21:36 | DVHINCON2 ---
Date Seen: May 09, 2025 Referring Physician MD Corey Reason for Consultation Suspected CHF History of Present Illness This is a 49-year-old male who presented to the ED with complaint of shortness of breath for four months. The patient complains of progressive shortness of breath associated with PND, WOOD, orthopnea, and chest pain triggered by cough and described as a sharp sensation. The patient denies any past medical history, nevertheless he has never seen a PCP. He admits to a longstanding history methamphetamine abuse. Denies family history for cardiovascular disease. Multiple 12 lead electrocardiograms revealed a sinus tachycardia rhythm suggestive of left ventricular hypertrophy and anterolateral/septal T-wave inversion. Serial troponin levels are negative. [facility], cardiology is asked to consult on this patient. Past Medical History Past medical history reviewed. No other significant than mentioned above. Past Surgical History Right ankle Family History: FH: chronic renal disease FH: chronic renal insufficiency Allergies: Coded Allergies: NO KNOWN ALLERGIES (Unverified , 05/08/25) Current Medications Current Medications Medications (Trade) Dose Ordered Sig/Soraya Route PRN Reason Start Time Stop Time Status Last Admin Azithromycin 250 ml @ 125 mls/hr DAILY IV 05/09/25 10:00 05/09/25 10:00 Ceftriaxone Sodium 50 ml @ 100 mls/hr DAILY@09 IV 05/09/25 09:00 05/09/25 09:00 Nifedipine (Procardia Xl (Time-Release)) 30 mg DAILY PO 05/09/25 10:00 05/09/25 11:32 DC 05/09/25 10:00 Pantoprazole Sodium (Protonix Tablet) 40 mg DAILY@0600 PO 05/10/25 06:00 Metoprolol Succinate (Toprol Xl) 25 mg DAILY PO 05/10/25 10:00 05/09/25 16:39 DC Heparin Sodium/ Dextrose 250 ml @ 17 mls/hr [id number] IV 05/09/25 13:45 05/09/25 18:24 DC 05/09/25 14:53 Dobutamine HCl/ Dextrose 250 ml @ 12.608 mls/ hr [id number] IV 05/09/25 16:45 05/09/25 18:06 Furosemide (Lasix Injection) 40 mg BIDD IV 05/09/25 18:00 05/09/25 18:05 Apixaban (Eliquis) 10 mg BID PO 05/09/25 22:00 05/16/25 10:01 Iron Sucrose 110 ml @ 110 mls/hr DAILY@1200 IV 05/10/25 12:00 05/14/25 12:59 UNV Review of Systems Constitutional: No symptom reported Ears, Nose, & Throat: No symptom reported Eyes: No symptom reported Neurological: No symptoms reported Pulmonary/Respiratory: SOB, PND, WOOD Cardiovascular: No symptom reported Gastrointestinal: No symptom reported Genitourinary: No symptom reported Musculoskeletal: No symptom reported Skin: No symptom reported Psychiatric: No symptom reported Endocrine: No symptom reported Hemotologic/Lymphatic: No symptom reported Vital Signs Vital Signs Date Time Temp Pulse Resp B/P (MAP) Pulse Ox O2 Delivery O2 Flow Rate FiO2 05/09/25 18:20 95 20 98 05/09/25 18:14 Nasal Cannula* 2 28 05/09/25 18:06 128/85 05/09/25 17:08 97.6 97.6 Physical Exam GENERAL: Alert and oriented x 3. No acute distress. Unkept. EYES: PERRL, EOMI. Anicteric. HENT: Moist mucous membranes. LUNGS: Crackles to bilateral breath sounds. CARDIOVASCULAR: Regular rate and rhythm. ABDOMEN: Soft, non-tender and non-distended. EXTREMITIES: 2+ BLE edema. NEUROLOGIC: No focal neurological deficits. SKIN: Warm, dry. Labs/Diagnostic Data Labs Test 05/09/25 21:11 05/09/25 17:59 05/09/25 17:54 05/09/25 06:13 Range/Units Hemoglobin 8.3 L 13.5-17.5 g/dL Hematocrit 25.6 L 41.0-53.0 % Iron Level 11 L 65-175 ug/dL Total Iron Binding Capacity 197 L 250-425 ug/dL Percent Iron Saturation 5.6 L 20-55 % Ferritin 285.4 22-322 ng/mL Test 05/09/25 02:30 05/09/25 00:20 05/08/25 21:24 05/08/25 18:05 Range/Units Blood Gas Specimen Type Arterial Blood Gas Sample Site Right radial Blood Gas Patient Temperature 37.0 Arterial Blood Date Drawn [id number] Arterial Blood pH 7.462 H 7.350-7.450 Arterial Blood Partial Pressure CO2 32.5 L 35.0-48.0 mmHg Arterial Blood Partial Pressure O2 63.1 L 83.0-108.0 mmHg Arterial Blood HCO3 22.7 21.0-28.0 mmol/L Arterial Blood Oxygen Saturation 92.2 L 94.0-98.0 % Arterial Blood Base Excess -0.8 -2.0-3.0 mmol/L Arterial Blood Oxyhemoglobin 90.3 L 94.0-98.0 % Arterial Blood Carboxyhemoglobin 1.3 0.5-1.5 % Arterial Blood Methemoglobin 0.8 0.0-1.5 % Mynor Test Yes Blood Gas Total Hemoglobin 8.50 L 13.5-17.5 g/dL Blood Gas Liter Flow 5.00 Blood Gas Modality Nasal cannula FiO2 % 40.0 White Blood Count 11.2 H 4.4-10.8 10^3/uL Red Blood Count 3.24 L 4.5-5.90 10^6/uL Mean Corpuscular Volume 74.2 L 80.0-100.0 fL Mean Corpuscular Hemoglobin 23.7 L 28.0-32.0 pg Mean Corpuscular Hemoglobin Concent 32.0 32.0-36.0 g/dL Red Cell Distribution Width 18.0 H 11.8-14.3 % Platelet Count 457 H 140-450 10^3/uL Mean Platelet Volume 8.1 6.9-10.8 fL Neutrophils (%) (Auto) 73.5 37.0-80.0 % Lymphocytes (%) (Auto) 14.9 10.0-50.0 % Monocytes (%) (Auto) 8.9 0.0-12.0 % Eosinophils (%) (Auto) 2.2 0.0-7.0 % Basophils (%) (Auto) 0.5 0.0-2.0 % Neutrophils # (Auto) 8.3 1.6-8.6 10 ^3/uL Lymphocytes # (Auto) 1.7 0.4-5.4 10 ^3/uL Monocytes # (Auto) 1.0 0-1.3 10 ^3/uL Eosinophils # (Auto) 0.2 0-0.8 10 ^3/uL Basophils # (Auto) 0.1 0-0.2 10 ^3/uL Nucleated Red Blood Cells 0.1 % Sodium Level 141 136-145 mmol/L Potassium Level 3.5 3.5-5.1 mmol/L Chloride Level 106 98-107 mmol/L Carbon Dioxide Level 23 20-31 mmol/L Anion Gap 12 5-15 Blood Urea Nitrogen 34 H 9-23 mg/dL Creatinine 3.53 H 0.700-1.30 mg/dL Glomerular Filtration Rate Calc 20 >90 mL/min BUN/Creatinine Ratio 9.6 L 10.0-20.0 Serum Glucose 122 H 74-106 mg/dL Calcium Level 8.1 L 8.7-10.4 mg/dL Total Bilirubin 0.4 0.2-1.0 mg/dL Aspartate Amino Transferase (AST) 37 13-40 U/L Alanine Aminotransferase (ALT) 18 7-40 U/L Alkaline Phosphatase 202 H 46-116 U/L Creatine Kinase 104 46-171 U/L Troponin I High Sensitivity 43 </=54 ng/L Total Protein 6.9 5.7-8.2 g/dL Albumin 3.5 3.2-4.8 g/dL Urine Color Yellow Yellow Urine Clarity Turbid H Clear Urine pH 6.0 5.0-9.0 Urine Specific [place] 1.017 1.001-1.035 Urine Protein 1+ H Negative Urine Ketones Negative Negative Urine Blood Trace H Negative /uL Urine Nitrite Negative Negative Urine Bilirubin Negative Negative Urine Urobilinogen 2 H Negative mg/dL Urine Leukocyte Esterase Negative Negative /uL Urine RBC 9 0 - 3 /hpf Urine Microscopic WBC 7 H 0-3 /HPF Urine Squamous Epithelial Cells Few <5 /hpf Urine Bacteria Few H None Seen /hpf Urine Mucus Few None Seen Urine Sperm Present None Seen /hpf Urine Creatinine 147.06 H 30.0-125.0 mg/dL Urine Glucose Normal Normal mg/dL Urine Total Protein 181.7 H 1-14 mg/dL Urine Opiates Screen Neg NEGATIVE Urine Fentanyl Screen Neg NEGATIVE Urine Barbiturates Screen Neg NEGATIVE Urine Phencyclidine Screen Neg NEGATIVE Urine Amphetamines Screen Pos NEGATIVE Urine Benzodiazepines Screen Neg NEGATIVE Urine Cocaine Screen Neg NEGATIVE Urine Cannabinoids Screen Neg NEGATIVE Influenza Type A Antigen Negative Negative Influenza Type B Antigen Negative Negative SARS-CoV-2 Antigen (Rapid) Negative NEGATIVE Test 05/08/25 16:01 05/08/25 08:11 Range/Units Hemoglobin A1c 5.5 <5.7 % A1C Phosphorus Level 3.5 2.4-5.1 mg/dL Magnesium Level 1.7 1.6-2.6 mg/dL B-Type Natriuretic Peptide 1109.17 0-100 pg/mL Triglycerides Level 90 < 150 mg/dL Cholesterol Level 116 < 200 mg/dL LDL Cholesterol 78 < 100 mg/dL HDL Cholesterol 30 L 40-59 mg/dL Thyroid Stimulating Hormone (TSH) 1.01 0.55-4.78 uIU/mL D-Dimer, Quantitative 4.70 H 0.0-0.49 mg/L FEU Microbiology Date/Time Source Procedure Growth Status 05/08/25 21:24 Voided Urine Urine Culture - Preliminary Resulted 05/08/25 17:10 Blood Blood Culture - Preliminary NO GROWTH AFTER 24 HOURS OF INCUBATION. Resulted Assessment Suspected bilateral pneumonia. Acute on chronic decompensated HFrEF, newly diagnosed, NYHA Class IV. 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 Subacute to chronic RLE thrombus. Likely LIZ on CKD. Acute anemia. Nicotine/methamphetamine dependence. Medical noncompliance. Plan/Recommendation I agree with your ongoing assessment and care of plan. Patient has been seen by Raeann Haynes NP on my behalf. We have discussed the plan with the patient. The patient presents with a newly diagnosed cardiomyopathy. Initiate dobutamine drip at a set rate and avoid BBs at this time. Initiate rest of GDMT for HFrEF with optimal renal function. Initiate preload reduction, strict I&Os, daily weight, and maintain fluid restriction. Monitor H&H closely. Currently on Heparin drip. Pending Vascular/Nephrology consultations. Monitor ECG changes closely and notify. Rest of plan per clinical course. Additional plan as per the hospital course. Plan discussed with: Patient NYHA Physical activity limitations: Class4(Severe)discomfort Date of Service: May 09, 2025 Billing Provider: FELIX BASSETT MD Cardiology Common Codes: [id number] INP/OBS CARE (High) Cardiology Consultation Codes: [id number] CONSULT <60MIN FELIX BASSETT MD May 09, 2025 21:36
[2025-05-09] MEDS: APIXABAN 5 MG TAB PO SCH (21:48)
[2025-05-09 22:04] LABS: INR 1.17 (0.9-1.15); Partial Thromboplastin Time 52.1 SEC (24.5-34.5); Prothrombin Time 12.2 sec (9.3-11.8)
[2025-05-10] VITALS (17 sets, daily range): BP systolic 115–130; BP diastolic 75–86; PULSE 84–96; RESP 16–20; TEMP 96.9–98.7; O2SAT 91–100
[2025-05-10] MEDS: PANTOPRAZOLE 40 MG TAB PO SCH (06:18)
[2025-05-10 09:03] LABS: Hemoglobin 7.8 g/dL (13.5-17.5)
[2025-05-10 09:06] LABS: Hematocrit 23.7 % (41.0-53.0); Mean Corpuscular Hemoglobin 24.1 pg (28.0-32.0); Mean Corpuscular Volume 73.1 fL (80.0-100.0); Nucleated Red Blood Cells % 0.0 %
[2025-05-10 09:15] LABS: Chloride 103 mmol/L (98-107); Potassium 3.6 mmol/L (3.5-5.1); Sodium 140 mmol/L (136-145)
[2025-05-10 09:16] LABS: Anion Gap 12 (5-15); Carbon Dioxide 25 mmol/L (20-31)
[2025-05-10 09:21] LABS: BUN/Creatinine Ratio 9.7 (10.0-20.0); Blood Urea Nitrogen 29 mg/dL (9-23); Calcium 8.1 mg/dL (8.7-10.4); Glucose 97 mg/dL (74-106)
[2025-05-10] MEDS ORDERED: METOPROLOL SUCCINATE XL 50 MG TAB PO SCH (10:00)
--- NOTE | 2025-05-10 10:12 | DVH ---
INDICATION: CHF TECHNIQUE: Single frontal view of the chest was obtained COMPARISON: XY CHEST PORTABLE on DOS: 05/08/25, XY CHEST PORTABLE on DOS: 05/08/25 FINDINGS: Lines and Tubes: None Lungs: Multifocal airspace disease Pleura: No effusion. No pneumothorax. Cardiomediastinal contours: Unremarkable Bones: Unremarkable IMPRESSION: Multifocal airspace disease
--- NOTE | 2025-05-10 11:22 | DVHPN2 ---
Progress Note Date Seen: May 10, 2025 Medical Necessity Reason Pt with a Central, PICC or Fol: No Subjective Patient reports: Feels better Objective vital signs Vital Sign Date Time Temp Pulse Resp B/P (MAP) Pulse Ox O2 Delivery O2 Flow Rate FiO2 05/10/25 09:00 97.8 90 20 123/81 (95) 93 97.8 05/10/25 06:39 Nasal Cannula 2.0 05/10/25 06:39 28 Total Intake and Output 05/09/25 05/09/25 05/10/25 15:00 23:00 07:00 Intake Total 375 ml 17 ml 800 ml Output Total 1450 ml 1000 ml Balance -1075 ml 17 ml -200 ml medications Current Medications Medications Dose Ordered Sig/Soraya Route Start Time Stop Time Status Last Admin Dose Admin Nitroglycerin 0.4 mg Q5MINP PRN SL 05/08/25 15:45 Morphine Sulfate 2 mg Q30M PRN IV 05/08/25 15:45 05/09/25 04:54 2 MG Ipratropium [place] 0.5 mg Q6HR NEB 05/08/25 15:45 05/10/25 06:47 0.5 MG Albuterol 1.25 mg Q6HR NEB 05/08/25 15:45 05/10/25 06:47 1.25 MG Azithromycin 250 ml @ 125 mls/hr DAILY IV 05/09/25 10:00 05/10/25 09:43 125 MLS/HR Ceftriaxone Sodium 50 ml @ 100 mls/hr DAILY@09 IV 05/09/25 09:00 05/10/25 08:27 100 MLS/HR Pantoprazole Sodium 40 mg DAILY@0600 PO 05/10/25 06:00 05/10/25 06:18 40 MG Dobutamine HCl/ Dextrose 250 ml @ 12.608 mls/ hr [id number] IV 05/09/25 16:45 05/09/25 18:06 12.608 MLS/HR Furosemide 40 mg BIDD IV 05/09/25 18:00 05/10/25 06:19 40 MG Apixaban 10 mg BID PO 05/09/25 22:00 05/16/25 10:01 05/10/25 08:28 10 MG Iron Sucrose 110 ml @ 110 mls/hr DAILY@1200 IV 05/10/25 12:00 05/14/25 12:59 Examination: GENERAL:Abnormal, CVS:Abnormal, SKIN:Abnormal laboratory and microbiology Laboratory Tests 05/10/25 07:24 Test 05/10/25 07:24 Range/Units Serum Glucose 97 74-106 mg/dL Microbiology Date/Time Source Procedure Growth Status 05/08/25 21:24 Voided Urine Urine Culture - Preliminary Resulted 05/08/25 17:10 Blood Blood Culture - Preliminary NO GROWTH AFTER 24 HOURS OF INCUBATION. Resulted Problem List/Assessment/Plan Problem List/Assessment/Plan 41-year-old male with past medical history of stroke presents to the hospital complaining of weakness was found to have right lower extremity DVT and acute renal failure Acute kidney injury hemodynamically mediated Chronic kidney disease unspecified most likely advanced stage however baseline is unknown Right DVT Methamphetamine acute use Elevated BNP and pleural effusion highly likely congestive heart failure Bilateral nonobstructing kidney stones Anemia due to chronic kidney disease Low-salt diet Fluid restriction Agree with diuretic therapy q.12 hours, responds to diuretics Record urinary output Anemia likely due to blood loss and kidney disease, IV iron s/p[ Echo results have not been reported Renal diet No emergent indication for dialysis at this time however patient will require close monitoring and close electrolyte corrections. Plan discussed with: Patient My Orders My Orders Orders - ASHU ROD MD Procedure Category Date Status Time Iron Sucrose Complex PHA 05/10/25 In Process (Venofer) 12:00 Basic Metabolic Panel LAB 05/11/25 Verified 04:00 Complete Blood Count LAB 05/11/25 Verified 04:00 Total Time (mins): 35 ASHU ROD MD May 10, 2025 11:22
--- NOTE | 2025-05-10 12:36 | DVHPN2 ---
Consult Progress Note Date Seen: May 10, 2025 Subjective Patient reports: Feels better Review of Systems: CVS:Normal, RESPIRATORY:Normal, NEURO:Normal Other Systems: States feeling better Objective vital signs Vital Sign Date Time Temp Pulse Resp B/P (MAP) Pulse Ox O2 Delivery O2 Flow Rate FiO2 05/10/25 12:01 88 18 96 05/10/25 09:00 97.8 123/81 (95) 97.8 05/10/25 06:39 Nasal Cannula 2.0 05/10/25 06:39 28 Total Intake and Output 05/09/25 05/09/25 05/10/25 15:00 23:00 07:00 Intake Total 375 ml 17 ml 800 ml Output Total 1450 ml 1000 ml Balance -1075 ml 17 ml -200 ml medications Current Medications Medications Dose Ordered Sig/Soraya Route Start Time Stop Time Status Last Admin Dose Admin Nitroglycerin 0.4 mg Q5MINP PRN SL 05/08/25 15:45 Morphine Sulfate 2 mg Q30M PRN IV 05/08/25 15:45 05/09/25 04:54 2 MG Ipratropium [place] 0.5 mg Q6HR NEB 05/08/25 15:45 05/10/25 11:58 0.5 MG Albuterol 1.25 mg Q6HR NEB 05/08/25 15:45 05/10/25 11:58 1.25 MG Azithromycin 250 ml @ 125 mls/hr DAILY IV 05/09/25 10:00 05/10/25 09:43 125 MLS/HR Ceftriaxone Sodium 50 ml @ 100 mls/hr DAILY@09 IV 05/09/25 09:00 05/10/25 08:27 100 MLS/HR Pantoprazole Sodium 40 mg DAILY@0600 PO 05/10/25 06:00 05/10/25 06:18 40 MG Dobutamine HCl/ Dextrose 250 ml @ 12.608 mls/ hr [id number] IV 05/09/25 16:45 05/09/25 18:06 12.608 MLS/HR Furosemide 40 mg BIDD IV 05/09/25 18:00 05/10/25 06:19 40 MG Apixaban 10 mg BID PO 05/09/25 22:00 05/16/25 10:01 05/10/25 08:28 10 MG Iron Sucrose 110 ml @ 110 mls/hr DAILY@1200 IV 05/10/25 12:00 05/14/25 12:59 Examination: LUNGS:Abnormal (Bilateral crackles R>L), CVS:Normal (NSR), NEURO:Normal laboratory and microbiology Laboratory Tests 05/10/25 07:24 Test 05/10/25 07:24 Range/Units Serum Glucose 97 74-106 mg/dL Problem List/Assessment/Plan Problem List/Assessment/Plan Suspected bilateral pneumonia Acute on chronic decompensated HFrEF, newly diagnosed, NYHA Class IV 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 Daniels) The patient presents with a newly diagnosed cardiomyopathy. Continue dobutamine drip at a set rate and avoid BBs at this time. Initiate rest of GDMT for HFrEF with optimal renal function. Initiate preload reduction, strict I&Os, daily weight, and maintain fluid restriction. Agree with Eliquis therapy for lower extremity DVT. Monitor H&H closely. Monitor ECG changes closely and notify. Rest of plan per clinical course. Thank you for allowing us to participate in this patient's care. Please call if you have any questions or concerns. This medical document was created using an electronic medical record system with voice recognition software and computerized dictation system. Although this document has been carefully reviewed, there might still be some phonetic and typographical errors. Occasional wrong-word or ``sound-alike substitutions may have occurred due to the inherent limitations of voice recognition software. These areas are purely typographical due to imperfections of the software programs and do not reflect any compromise in the patient's medical care. Please read the chart carefully and recognize, using context, where these substitutions have occurred. Plan discussed with: Patient, Other Date of Service: May 10, 2025 Billing Provider: ROSETTA CISNEROS Cardiology Common Codes: [id number] HOSP CARE(High ROSETTA CISNEROS May 10, 2025 12:35
[2025-05-10] MEDS: IRON SUCROSE COMPLEX 110 ML IV SCH (12:50)
--- NOTE | 2025-05-10 16:12 | DVHPNRES ---
Progress Note Date Seen: May 10, 2025 Resident Creating Document: SPENCER FELDMAN RESIDENT Medical Necessity Reason Pt with a Central, PICC or Fol: No Subjective Review of Systems Patient is a 49-year-old male with prior medical history of hypertension and 2 prior CVAs in 2019, who presents to the ED with chief complaint of shortness of breath. Per the patient and his , Jessica, patient has had chronic cough with clear expectoration since August, which for the last 3 months has been associated to increasing shortness of breath, clubbing of finger nails, and left chest pain. Yesterday, they state the patient's lips became cyanotic and worsening of chest pain described as sharp pain localized in left chest wall, non-radiating, intensity of 7/10, with no aggravating nor relieving factors, which prompted him to seek medical care. He denies fever, nausea, vomiting, and palpitations. On evaluation in the ED, patient was found in mild distress, afebrile, tachycardic, and hypertensive. 12 Lead EKG in the ED shows sinus tachycardia. Initial labs show WBCs 11.1, hemoglobin 8.9, hematocrit 27.7, platelets 530, creatinine 3.87, ALP 167, troponins negative, PT 12.4, INR 1.19, and D-dimer 4.7. Chest x-ray shows multifocal airspace disease. Due to presence of chest pain, tachycardia, and elevated D-dimer, V/Q mismatch scan was ordered to evaluate for possible PE, which showed low probability for PE. lower extremity venous duplex ultrasound shows presence of subacute to chronic appearing thrombus in the right calf peroneal vein with linear echogenicity within the lumen and partially compressible vein. He is being admitted for further work up and monitoring and will be started on IV antibiotics, IV fluids, breathing treatments , and heparin. Follow-up labs were significant for WBC 11.2, hemoglobin 7.7, hematocrit 24, 3.35, BUN 34, BNP 1109.17, and UDS positive for amphetamines. On admission, due to shortness of breath, patient required supplemental oxygen 4L via nasal cannula, which was subsequently lower to 2 L. he was evaluated by Cardiology who initiated dobutamine drip, and recommend avoidance of beta blockers at this time, initiation of GDM T with optimal renal function, She has a preload reduction, strict I's and O's, and maintenance of fluid restriction. Patient was evaluated by Nephrology who stated there is no emergent indication for dialysis at this time, recommend low-salt diet, fluid restriction, diuretic therapy q.12 hours if necessary, and monitoring of urinary output. Patient seen at bedside. He is AOx4, states better, chest pain and shortness of breath have improved currently on 2 L of oxygen. he states his cough has improved. He has been able to sleep, is tolerating oral diet, and is ambulating around his room. No adverse events overnight. Vitals have been stable. Labs are significant for hemoglobin of 7.8, BUN 29, and creatinine 3. Per Nephrology's recommendations, patient has been started on IV iron. Heparin drip has been discontinued, Eliquis has been initiated. Pending results of echocardiogram. We will continue monitor. Objective vital signs Vital Sign Date Time Temp Pulse Resp B/P (MAP) Pulse Ox O2 Delivery O2 Flow Rate FiO2 05/10/25 13:00 98.0 86 20 118/81 (93) 100 98.0 05/10/25 10:15 Nasal Cannula 2.0 05/10/25 10:15 28 Total Intake and Output 05/09/25 05/09/25 05/10/25 15:00 23:00 07:00 Intake Total 375 ml 17 ml 800 ml Output Total 1450 ml 1000 ml Balance -1075 ml 17 ml -200 ml medications Current Medications Medications Dose Ordered Sig/Soraya Route Start Time Stop Time Status Last Admin Dose Admin Nitroglycerin 0.4 mg Q5MINP PRN SL 05/08/25 15:45 Morphine Sulfate 2 mg Q30M PRN IV 05/08/25 15:45 05/09/25 04:54 2 MG Ipratropium [place] 0.5 mg Q6HR NEB 05/08/25 15:45 05/10/25 11:58 0.5 MG Albuterol 1.25 mg Q6HR NEB 05/08/25 15:45 05/10/25 11:58 1.25 MG Azithromycin 250 ml @ 125 mls/hr DAILY IV 05/09/25 10:00 05/10/25 09:43 125 MLS/HR Ceftriaxone Sodium 50 ml @ 100 mls/hr DAILY@09 IV 05/09/25 09:00 05/10/25 08:27 100 MLS/HR Pantoprazole Sodium 40 mg DAILY@0600 PO 05/10/25 06:00 05/10/25 06:18 40 MG Dobutamine HCl/ Dextrose 250 ml @ 12.608 mls/ hr [id number] IV 05/09/25 16:45 05/10/25 12:51 12.608 MLS/HR Furosemide 40 mg BIDD IV 05/09/25 18:00 05/10/25 06:19 40 MG Apixaban 10 mg BID PO 05/09/25 22:00 05/16/25 10:01 05/10/25 08:28 10 MG Iron Sucrose 110 ml @ 110 mls/hr DAILY@1200 IV 05/10/25 12:00 05/14/25 12:59 05/10/25 12:50 110 MLS/HR Examination General: Patient alert and oriented in person place and time. Patient following commands HEENT: Normocephalic, atraumatic, reactive pupils, EOM intact, pink conjunctiva, non-icteric sclera, pink moist mucous membrane Respiratory/pulmonary: Bilateral chest expansion, no pain on palpation of chest wall, vesicular murmurs present in almost all lung lackey, bilateral crackles in lower lung lackey. Abdomen: Abdomen nondistended, normal bowel sounds, soft, no pain to palpation in any of the abdominal quadrants, no palpable masses. Cardiovascular: Normal RRR, normal S1 and S2 Extremities: Clubbing of finger nails on both hands, no cyanosis, bilateral lower extremity edema +2, right calf is warm to the touch, deformity of right ankle secondary to previous trauma and surgery Peripheral pulses: normal pulses Skin: No rashes or pruritus Neurological: Intact cranial nerves with no focal neurologic deficits laboratory and microbiology Laboratory Tests 05/10/25 07:24 Test 05/10/25 07:24 Range/Units Serum Glucose 97 74-106 mg/dL Microbiology Date/Time Source Procedure Growth Status 05/08/25 21:24 Voided Urine Urine Culture - Preliminary Resulted 05/08/25 17:10 Blood Blood Culture - Preliminary NO GROWTH AFTER 24 HOURS OF INCUBATION. Resulted Problem List/Assessment/Plan Problem List/Assessment/Plan Assessment and Plan: Possible sepsis, likely due to pneumonia ( Gram-positive/Gram-negative ) -Chest x-ray: Multifocal airspace disease -Ceftriaxone 1 g IV daily -Azithromycin 500 mg IV daily -Blood cultures: no growth at 24 hours -Sputum cultures pending -Bolus of 150 cc normal saline Possible Acute on Chronic HFrEF -Dobutamine drip -Initiate GDMT when renal function permits -Strict Is and Os -Pending results of echocardiogram -Furosemide 40 mg IV b.i.d. Drug induced cardiomyopathy Questionable COPD, spirometry unavailable, in exacerbation -Albuterol med neb 1.25 mg q.6 hours -Ipratropium med nebs 0.5 mg q.6 hours Acute chest pain, rule out ACS -Echo pending -Morphine 2 mg IV Q 30 p.r.n. -Nitroglycerin 0.4 mg sublingual p.r.n. -Aspirin 162 mg p.o. once Right distal DVT -Lower extremity venous duplex: Subacute to chronic appearing thrombus in the right calf peroneal vein with linear echogenicity within the lumen and partially compressible vein -Heparin drip, discontinued -Eliquis 10 mg PO Possible LIZ likely due to VMN, on questionable CKD, baseline unavailable - Monitor renal function - Avoid nephrotoxic drugs - Renal diet Microcytic anemia, likely of chronic disease due to above -Monitor H&H -Iron IVPB daily Hypertension, uncontrolled -Nifedipine 30 mg p.o. daily, discontinued -Metoprolol, discontinued per cardiology recommendations Methamphetamine use - UDS positive for methamphetamine - counseled on the importance of sensation of drug use over 15 minutes History of CVA History of tobacco use - counseled on cessation of tobacco for over 20 minutes Medical noncompliance GI prophylaxis: Protonix 40 mg p.o. daily Case discussed with Dr. Martinez Goals of care discussed with the patient and his , Jessica, for over 35 minutes, they state they understand and agree. FULL CODE. Plan discussed with: Patient My Orders My Orders Orders - SPENCER FELDMAN RESIDENT Procedure Category Date Status Time Apixaban (Eliquis) PHA 05/09/25 In Process 22:00 * Forensic Examiner CONS 05/10/25 Transmitted Consult Comprehensive LAB 05/11/25 Verified Metabolic Panel 04:00 Date of Service: May 10, 2025 Billing Provider: MARIBEL MARTINEZ MD Common Visit Codes: [id number] INP/OBS CARE(HIGH) SPENCER FELDMAN RESIDENT May 10, 2025 16:12 MARIBEL MARTINEZ MD May 12, 2025 22:16
--- NOTE | 2025-05-10 22:07 | DVHPN2 ---
Consult Progress Note Date Seen: May 10, 2025 Subjective Patient reports: Feels better Other Systems: Patient was seen and evaluated in follow up. Patient is on 2 LPM NC. Patient states he feels better toda. Patient on dobutamine drip. HGB 7.8, HCT 23.7, BUN 29, Systems Specialist 3.0. Telemetry reviewed. Objective vital signs Vital Sign Date Time Temp Pulse Resp B/P (MAP) Pulse Ox O2 Delivery O2 Flow Rate FiO2 05/10/25 19:22 90 20 96 05/10/25 19:16 Nasal Cannula* 2 28 05/10/25 18:11 129/79 05/10/25 17:00 98.7 98.7 Total Intake and Output 05/09/25 05/09/25 05/10/25 15:00 23:00 07:00 Intake Total 375 ml 17 ml 800 ml Output Total 1450 ml 1000 ml Balance -1075 ml 17 ml -200 ml medications Current Medications Medications Dose Ordered Sig/Soraya Route Start Time Stop Time Status Last Admin Dose Admin Nitroglycerin 0.4 mg Q5MINP PRN SL 05/08/25 15:45 Morphine Sulfate 2 mg Q30M PRN IV 05/08/25 15:45 05/09/25 04:54 2 MG Ipratropium [place] 0.5 mg Q6HR NEB 05/08/25 15:45 05/10/25 19:16 0.5 MG Albuterol 1.25 mg Q6HR NEB 05/08/25 15:45 05/10/25 19:16 1.25 MG Azithromycin 250 ml @ 125 mls/hr DAILY IV 05/09/25 10:00 05/10/25 09:43 125 MLS/HR Ceftriaxone Sodium 50 ml @ 100 mls/hr DAILY@09 IV 05/09/25 09:00 05/10/25 08:27 100 MLS/HR Pantoprazole Sodium 40 mg DAILY@0600 PO 05/10/25 06:00 05/10/25 06:18 40 MG Dobutamine HCl/ Dextrose 250 ml @ 12.608 mls/ hr [id number] IV 05/09/25 16:45 05/10/25 12:51 12.608 MLS/HR Furosemide 40 mg BIDD IV 05/09/25 18:00 05/10/25 18:11 40 MG Apixaban 10 mg BID PO 05/09/25 22:00 05/16/25 10:01 05/10/25 08:28 10 MG Iron Sucrose 110 ml @ 110 mls/hr DAILY@1200 IV 05/10/25 12:00 05/14/25 12:59 05/10/25 12:50 110 MLS/HR Examination: GENERAL:Normal, HEENT:Normal, NECK:Normal, LUNGS:Abnormal (Bilateral crackles R>L ), CVS:Normal, ABDOMEN:Normal, MSK:Normal, SKIN:Normal, NEURO:Normal laboratory and microbiology Laboratory Tests 05/10/25 07:24 Test 05/10/25 07:24 Range/Units Serum Glucose 97 74-106 mg/dL Problem List/Assessment/Plan Problem List/Assessment/Plan Suspected bilateral pneumonia. Acute on chronic decompensated HFrEF, newly diagnosed, NYHA Class IV. 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 Subacute to chronic RLE thrombus. Likely LIZ on CKD. Acute anemia. Thrombocytosis. Nicotine/methamphetamine dependence. Medical noncompliance. Plan/Recommendation Continued all current supportive medical care. Patient has been seen by Raeann Haynes NP on my behalf. We have discussed the plan with the patient. The patient presents with a newly diagnosed cardiomyopathy. Continue dobutamine drip at a set rate and avoid BBs at this time. Initiate rest of GDMT for HFrEF with optimal renal function. Initiate preload reduction, strict I&Os, daily weight, and maintain fluid restriction. Agree with Eliquis therapy for lower extremity DVT. Monitor H&H closely. Monitor ECG changes closely and notify. Additional plan as per the hospital course. Plan discussed with: Patient Date of Service: May 10, 2025 Billing Provider: FELIX BASSETT MD Cardiology Common Codes: [id number] HOSP CARE(High FELIX BASSETT MD May 10, 2025 22:07
[2025-05-11] VITALS (16 sets, daily range): BP systolic 136–152; BP diastolic 86–99; PULSE 84–102; RESP 16–19; TEMP 98.2–99.4; O2SAT 94–100
[2025-05-11 08:17] LABS: Alanine Aminotransferase 16 U/L (7-40); Albumin 3.6 g/dL (3.2-4.8); Anion Gap 12 (5-15); BUN/Creatinine Ratio 9.7 (10.0-20.0); Carbon Dioxide 27 mmol/L (20-31); Chloride 101 mmol/L (98-107); Glucose 95 mg/dL (74-106); Sodium 140 mmol/L (136-145)
[2025-05-11 08:19] LABS: Total Protein 7.1 g/dL (5.7-8.2)
[2025-05-11 08:21] LABS: Alkaline Phosphatase 171 U/L (46-116); Bilirubin, Total 0.2 mg/dL (0.2-1.0); Blood Urea Nitrogen 28 mg/dL (9-23); Calcium 8.6 mg/dL (8.7-10.4); Potassium 3.4 mmol/L (3.5-5.1)
--- NOTE | 2025-05-11 11:40 | DVHPN2 ---
Consult Progress Note Date Seen: May 11, 2025 Subjective Patient reports: Feels better Review of Systems: CVS:Normal, RESPIRATORY:Normal, NEURO:Normal Objective vital signs Vital Sign Date Time Temp Pulse Resp B/P (MAP) Pulse Ox O2 Delivery O2 Flow Rate FiO2 05/11/25 11:10 86 18 100 05/11/25 11:03 Nasal Cannula* 2 28 05/11/25 09:00 98.4 145/95 (112) 98.4 Total Intake and Output 05/10/25 05/10/25 05/11/25 15:00 23:00 07:00 Intake Total 660 ml 480 ml 926 ml Output Total 1400 ml 1200 ml Balance 660 ml -920 ml -274 ml medications Current Medications Medications Dose Ordered Sig/Soraya Route Start Time Stop Time Status Last Admin Dose Admin Nitroglycerin 0.4 mg Q5MINP PRN SL 05/08/25 15:45 Morphine Sulfate 2 mg Q30M PRN IV 05/08/25 15:45 05/09/25 04:54 2 MG Ipratropium [place] 0.5 mg Q6HR NEB 05/08/25 15:45 05/11/25 11:02 0.5 MG Albuterol 1.25 mg Q6HR NEB 05/08/25 15:45 05/11/25 11:02 1.25 MG Azithromycin 250 ml @ 125 mls/hr DAILY IV 05/09/25 10:00 05/11/25 10:27 125 MLS/HR Ceftriaxone Sodium 50 ml @ 100 mls/hr DAILY@09 IV 05/09/25 09:00 05/11/25 08:52 100 MLS/HR Pantoprazole Sodium 40 mg DAILY@0600 PO 05/10/25 06:00 05/11/25 06:01 40 MG Dobutamine HCl/ Dextrose 250 ml @ 12.608 mls/ hr [id number] IV 05/09/25 16:45 05/11/25 08:53 12.608 MLS/HR Furosemide 40 mg BIDD IV 05/09/25 18:00 05/11/25 06:01 40 MG Apixaban 10 mg BID PO 05/09/25 22:00 05/16/25 10:01 05/11/25 10:27 10 MG Iron Sucrose 110 ml @ 110 mls/hr DAILY@1200 IV 05/10/25 12:00 05/14/25 12:59 05/10/25 12:50 110 MLS/HR Examination: LUNGS:Normal, CVS:Normal, NEURO:Normal laboratory and microbiology Laboratory Tests 05/11/25 06:44 05/10/25 07:24 Test 05/11/25 06:44 Range/Units Serum Glucose 95 74-106 mg/dL Problem List/Assessment/Plan Problem List/Assessment/Plan Suspected bilateral pneumonia Acute on chronic decompensated HFrEF, newly diagnosed, NYHA Class IV 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 Daniels) The patient presents with a newly diagnosed cardiomyopathy. Transthoracic echocardiogram report pending at this time. Initiate Coreg and uptitrate as tolerated. Rest of GDMT for HFrEF with optimal renal function. Continue preload reduction, strict I&Os, daily weight, and maintain fluid restriction. Agree with Eliquis therapy for lower extremity DVT. Monitor H&H closely. Monitor ECG changes closely and notify. Nephrology recommendations. Medical management only given drug abuse and medical non-compliance. Rest of plan per clinical course. Thank you for allowing us to participate in this patient's care. Please call if you have any questions or concerns. This medical document was created using an electronic medical record system with voice recognition software and computerized dictation system. Although this document has been carefully reviewed, there might still be some phonetic and typographical errors. Occasional wrong-word or ``sound-alike substitutions may have occurred due to the inherent limitations of voice recognition software. These areas are purely typographical due to imperfections of the software programs and do not reflect any compromise in the patient's medical care. Please read the chart carefully and recognize, using context, where these substitutions have occurred. Plan discussed with: Patient, Other Date of Service: May 11, 2025 Billing Provider: ROSETTA CISNEROS Cardiology Common Codes: [id number] HOSP CARE(High ROSETTA CISNEROS May 11, 2025 11:40
[2025-05-11] MEDS: DOCUSATE SOD 100 MG CAP PO ONE (12:17)
[2025-05-11] MEDS: POTASSIUM CHL 10 Meq TABLET PO ONE (12:17)
[2025-05-11] MEDS: POLYETHYLENE GLYCOL 17 GM PWDR PO ONE (12:18)
--- NOTE | 2025-05-11 13:40 | DVH ---
XY CHEST PORTABLE, HISTORY: CHF COMPARISON: XY CHEST PORTABLE on DOS: 05/10/25, XY CHEST PORTABLE on DOS: 05/08/25 XY CHEST PORTABLE on DOS: 05/10/25, XY CHEST PORTABLE on DOS: 05/08/25 TECHNICAL DATA: 1 view of the chest was obtained. FINDINGS: Lines and tubes: None Cardiomediastinal silhouette: normal Pulmonary vasculature: normal Lung expansion: normal Lung airspace: Right basilar airspace opacity. Lung interstitium: normal Pleura: Trace right pleural effusion. Pneumothorax: no Bones: Unremarkable Other: no IMPRESSION: Trace right pleural effusion. Right basilar airspace opacity similar to prior.
--- NOTE | 2025-05-11 16:13 | DVHPNRES ---
Progress Note Date Seen: May 11, 2025 Resident Creating Document: SPENCER FELDMAN RESIDENT Medical Necessity Reason Pt with a Central, PICC or Fol: No Subjective Review of Systems Patient is a 49-year-old male with prior medical history of hypertension and 2 prior CVAs in 2019, who presents to the ED with chief complaint of shortness of breath. Per the patient and his , Jessica, patient has had chronic cough with clear expectoration since August, which for the last 3 months has been associated to increasing shortness of breath, clubbing of finger nails, and left chest pain. Yesterday, they state the patient's lips became cyanotic and worsening of chest pain described as sharp pain localized in left chest wall, non-radiating, intensity of 7/10, with no aggravating nor relieving factors, which prompted him to seek medical care. He denies fever, nausea, vomiting, and palpitations. On evaluation in the ED, patient was found in mild distress, afebrile, tachycardic, and hypertensive. 12 Lead EKG in the ED shows sinus tachycardia. Initial labs show WBCs 11.1, hemoglobin 8.9, hematocrit 27.7, platelets 530, creatinine 3.87, ALP 167, troponins negative, PT 12.4, INR 1.19, and D-dimer 4.7. Chest x-ray shows multifocal airspace disease. Due to presence of chest pain, tachycardia, and elevated D-dimer, V/Q mismatch scan was ordered to evaluate for possible PE, which showed low probability for PE. lower extremity venous duplex ultrasound shows presence of subacute to chronic appearing thrombus in the right calf peroneal vein with linear echogenicity within the lumen and partially compressible vein. He is being admitted for further work up and monitoring and will be started on IV antibiotics, IV fluids, breathing treatments , and heparin. Follow-up labs were significant for WBC 11.2, hemoglobin 7.7, hematocrit 24, 3.35, BUN 34, BNP 1109.17, and UDS positive for amphetamines. On admission, due to shortness of breath, patient required supplemental oxygen 4L via nasal cannula, which was subsequently lower to 2 L. he was evaluated by Cardiology who initiated dobutamine drip, and recommend avoidance of beta blockers at this time, initiation of GDM T with optimal renal function, She has a preload reduction, strict I's and O's, and maintenance of fluid restriction. Patient was evaluated by Nephrology who stated there is no emergent indication for dialysis at this time, recommend low-salt diet, fluid restriction, diuretic therapy q.12 hours if necessary, and monitoring of urinary output. Patient seen at bedside. He is Aox4, states that he feels better, chest pain and shortness of Breath have resolved. He states that he was able to sleep lying flat for the 1st time in months. States his cough has also resolved. He is tolerating oral diet and ambulating. No adverse events overnight. Vitals have been stable. CMP showing improvement in renal function. He was evaluated by Cardiology today who discontinue dobutamine drip and initiated Coreg with plans to up titrate as tolerated. He is currently pending results of echocardiogram. Patient was taken off oxygen today, is tolerating appropriately on room air. We will continue to monitor. Objective vital signs Vital Sign Date Time Temp Pulse Resp B/P (MAP) Pulse Ox O2 Delivery O2 Flow Rate FiO2 05/11/25 13:30 98.3 102 19 144/94 (111) 96 98.3 05/11/25 11:03 Nasal Cannula* 2 28 Total Intake and Output 05/10/25 05/10/25 05/11/25 15:00 23:00 07:00 Intake Total 660 ml 480 ml 926 ml Output Total 1400 ml 1200 ml Balance 660 ml -920 ml -274 ml medications Current Medications Medications Dose Ordered Sig/Soraya Route Start Time Stop Time Status Last Admin Dose Admin Nitroglycerin 0.4 mg Q5MINP PRN SL 05/08/25 15:45 Morphine Sulfate 2 mg Q30M PRN IV 05/08/25 15:45 05/09/25 04:54 2 MG Ipratropium [place] 0.5 mg Q6HR NEB 05/08/25 15:45 05/11/25 11:02 0.5 MG Albuterol 1.25 mg Q6HR NEB 05/08/25 15:45 05/11/25 11:02 1.25 MG Azithromycin 250 ml @ 125 mls/hr DAILY IV 05/09/25 10:00 05/11/25 10:27 125 MLS/HR Ceftriaxone Sodium 50 ml @ 100 mls/hr DAILY@09 IV 05/09/25 09:00 05/11/25 08:52 100 MLS/HR Pantoprazole Sodium 40 mg DAILY@0600 PO 05/10/25 06:00 05/11/25 06:01 40 MG Furosemide 40 mg BIDD IV 05/09/25 18:00 05/11/25 06:01 40 MG Apixaban 10 mg BID PO 05/09/25 22:00 05/16/25 10:01 05/11/25 10:27 10 MG Iron Sucrose 110 ml @ 110 mls/hr DAILY@1200 IV 05/10/25 12:00 05/14/25 12:59 05/11/25 12:05 110 MLS/HR Carvedilol 6.25 mg Q12HR PO 05/11/25 22:00 Docusate Sodium 100 mg BID PO 05/11/25 22:00 Examination General: Patient alert and oriented in person place and time. Patient following commands HEENT: Normocephalic, atraumatic, reactive pupils, EOM intact, pink conjunctiva, non-icteric sclera, pink moist mucous membrane Respiratory/pulmonary: Bilateral chest expansion, no pain on palpation of chest wall, vesicular murmurs present in almost all lung lackey, bilateral crackles in lower lung lackey however they are improving. Abdomen: Abdomen nondistended, normal bowel sounds, soft, no pain to palpation in any of the abdominal quadrants, no palpable masses. Cardiovascular: Normal RRR, normal S1 and S2 Extremities: Clubbing of finger nails on both hands, no cyanosis, no edema in lower extremities, right calf is warm to the touch, deformity of right ankle secondary to previous trauma and surgery Peripheral pulses: normal pulses Skin: No rashes or pruritus Neurological: Intact cranial nerves with no focal neurologic deficits laboratory and microbiology Laboratory Tests 05/11/25 06:44 05/10/25 07:24 Test 05/11/25 06:44 Range/Units Serum Glucose 95 74-106 mg/dL Microbiology Date/Time Source Procedure Growth Status 05/08/25 21:24 Voided Urine Urine Culture - Final Complete 05/08/25 17:10 Blood Blood Culture - Preliminary NO GROWTH AFTER 48 HOURS OF INCUBATION. Resulted Problem List/Assessment/Plan Problem List/Assessment/Plan Assessment and Plan: Possible sepsis, likely due to pneumonia ( Gram-positive/Gram-negative ) -Chest x-ray: Multifocal airspace disease -Ceftriaxone 1 g IV daily -Azithromycin 500 mg IV daily -Blood cultures: no growth at 24 hours -Sputum cultures pending -Bolus of 150 cc normal saline Acute hypoxic respiratory failure, resolved -2L O2 NC, discontinued Possible Acute on Chronic HFrEF -Dobutamine drip, discontinued -Carvedilol 6.25 mg q.12 hours p.o. -Initiate GDMT when renal function permits -Strict Is and Os -Pending results of echocardiogram -Furosemide 40 mg IV b.i.d. Drug induced cardiomyopathy Questionable COPD, spirometry unavailable, in exacerbation -Albuterol med neb 1.25 mg q.6 hours -Ipratropium med nebs 0.5 mg q.6 hours Acute chest pain, rule out ACS -Echo pending -Morphine 2 mg IV Q 30 p.r.n. -Nitroglycerin 0.4 mg sublingual p.r.n. -Aspirin 162 mg p.o. once Right distal DVT -Lower extremity venous duplex: Subacute to chronic appearing thrombus in the right calf peroneal vein with linear echogenicity within the lumen and partially compressible vein -Heparin drip, discontinued -Eliquis 10 mg PO Possible LIZ likely due to VMN, on questionable CKD, baseline unavailable - Monitor renal function - Avoid nephrotoxic drugs - Renal diet Microcytic anemia, likely of chronic disease due to above -Monitor H&H -Iron IVPB daily Hypertension, uncontrolled -Nifedipine 30 mg p.o. daily, discontinued -Metoprolol, discontinued per cardiology recommendations Methamphetamine use - UDS positive for methamphetamine - counseled on the importance of sensation of drug use over 15 minutes History of CVA History of tobacco use - counseled on cessation of tobacco for over 20 minutes Medical noncompliance GI prophylaxis: Protonix 40 mg p.o. daily Case discussed with Dr. Hong. Goals of care discussed with the patient and his , Jessica, for over 35 minutes, they state they understand and agree. FULL CODE Plan discussed with: Patient My Orders My Orders Orders - SPENCER FELDMAN RESIDENT Procedure Category Date Status Time Docusate Sodium PHA 05/11/25 In Process Capsule (Colace 22:00 Date of Service: May 11, 2025 Billing Provider: CLOVIS HONG MD Common Visit Codes: [id number] INP/OBS CARE(HIGH) SPENCER FELDMAN May 11, 2025 16:13 CLOVIS HONG MD May 11, 2025 19:48
--- NOTE | 2025-05-11 16:44 | DVHPN2 ---
Progress Note Date Seen: May 11, 2025 Medical Necessity Reason Pt with a Central, PICC or Fol: No Objective vital signs Vital Sign Date Time Temp Pulse Resp B/P (MAP) Pulse Ox O2 Delivery O2 Flow Rate FiO2 05/11/25 13:30 98.3 102 19 144/94 (111) 96 98.3 05/11/25 11:03 Nasal Cannula* 2 28 Total Intake and Output 05/10/25 05/10/25 05/11/25 15:00 23:00 07:00 Intake Total 660 ml 480 ml 926 ml Output Total 1400 ml 1200 ml Balance 660 ml -920 ml -274 ml medications Current Medications Medications Dose Ordered Sig/Soraya Route Start Time Stop Time Status Last Admin Dose Admin Nitroglycerin 0.4 mg Q5MINP PRN SL 05/08/25 15:45 Morphine Sulfate 2 mg Q30M PRN IV 05/08/25 15:45 05/09/25 04:54 2 MG Ipratropium [place] 0.5 mg Q6HR NEB 05/08/25 15:45 05/11/25 11:02 0.5 MG Albuterol 1.25 mg Q6HR NEB 05/08/25 15:45 05/11/25 11:02 1.25 MG Azithromycin 250 ml @ 125 mls/hr DAILY IV 05/09/25 10:00 05/11/25 10:27 125 MLS/HR Ceftriaxone Sodium 50 ml @ 100 mls/hr DAILY@09 IV 05/09/25 09:00 05/11/25 08:52 100 MLS/HR Pantoprazole Sodium 40 mg DAILY@0600 PO 05/10/25 06:00 05/11/25 06:01 40 MG Furosemide 40 mg BIDD IV 05/09/25 18:00 05/11/25 06:01 40 MG Apixaban 10 mg BID PO 05/09/25 22:00 05/16/25 10:01 05/11/25 10:27 10 MG Iron Sucrose 110 ml @ 110 mls/hr DAILY@1200 IV 05/10/25 12:00 05/14/25 12:59 05/11/25 12:05 110 MLS/HR Carvedilol 6.25 mg Q12HR PO 05/11/25 22:00 Docusate Sodium 100 mg BID PO 05/11/25 22:00 Examination: GENERAL:Normal, CVS:Abnormal, SKIN:Normal laboratory and microbiology Laboratory Tests 05/11/25 06:44 05/10/25 07:24 Test 05/11/25 06:44 Range/Units Serum Glucose 95 74-106 mg/dL Microbiology Date/Time Source Procedure Growth Status 05/08/25 21:24 Voided Urine Urine Culture - Final Complete 05/08/25 17:10 Blood Blood Culture - Preliminary NO GROWTH AFTER 48 HOURS OF INCUBATION. Resulted Problem List/Assessment/Plan Problem List/Assessment/Plan 41-year-old male with past medical history of stroke presents to the hospital complaining of weakness was found to have right lower extremity DVT and acute renal failure Acute kidney injury hemodynamically mediated Chronic kidney disease unspecified most likely advanced stage however baseline is unknown Right DVT Methamphetamine acute use Elevated BNP and pleural effusion highly likely congestive heart failure Bilateral nonobstructing kidney stones Anemia due to chronic kidney disease Low-salt diet Fluid restriction Agree with diuretic therapy q.12 hours, responds to diuretics Record urinary output Anemia likely due to blood loss and kidney disease, IV iron s/p[ Echo results have not been reported Renal diet No emergent indication for dialysis at this time however patient will require close monitoring and close electrolyte corrections. Plan discussed with: Patient Dietary Evaluation Review Comments: 1) Encourage optimal PO intake 2) Refer to outpatient RD for weight management 3) Follow-up with cardiology and pulmonology 4) Follow-up with social media intern r/t methamphetamine abuse 5) Continue to monitor I&O, labs, and skin integrity Expected Outcomes/Goals: 1) appetite and labs to improve 2) f/u in 3-5 days ASHU ROD MD May 11, 2025 16:43
--- NOTE | 2025-05-11 20:47 | DVHPN2 ---
Consult Progress Note Date Seen: May 11, 2025 Subjective Other Systems: Patient was seen and evaluated in follow up. No overnight events. patient reports feeling well. Transthoracic echocardiogram report pending at this time. K 3.4, BUN 28, Yard Motor Operator 2.90. Telemetry reviewed. Objective vital signs Vital Sign Date Time Temp Pulse Resp B/P (MAP) Pulse Ox O2 Delivery O2 Flow Rate FiO2 05/11/25 18:46 87 16 100 05/11/25 18:40 Room Air* 0 21 05/11/25 17:30 99.4 143/93 (110) 99.4 Total Intake and Output 05/10/25 05/10/25 05/11/25 15:00 23:00 07:00 Intake Total 660 ml 480 ml 926 ml Output Total 1400 ml 1200 ml Balance 660 ml -920 ml -274 ml medications Current Medications Medications Dose Ordered Sig/Soraya Route Start Time Stop Time Status Last Admin Dose Admin Nitroglycerin 0.4 mg Q5MINP PRN SL 05/08/25 15:45 Morphine Sulfate 2 mg Q30M PRN IV 05/08/25 15:45 05/09/25 04:54 2 MG Ipratropium [place] 0.5 mg Q6HR NEB 05/08/25 15:45 05/11/25 18:40 0.5 MG Albuterol 1.25 mg Q6HR NEB 05/08/25 15:45 05/11/25 18:41 1.25 MG Azithromycin 250 ml @ 125 mls/hr DAILY IV 05/09/25 10:00 05/11/25 10:27 125 MLS/HR Ceftriaxone Sodium 50 ml @ 100 mls/hr DAILY@09 IV 05/09/25 09:00 05/11/25 08:52 100 MLS/HR Pantoprazole Sodium 40 mg DAILY@0600 PO 05/10/25 06:00 05/11/25 06:01 40 MG Furosemide 40 mg BIDD IV 05/09/25 18:00 05/11/25 17:14 40 MG Apixaban 10 mg BID PO 05/09/25 22:00 05/16/25 10:01 05/11/25 10:27 10 MG Iron Sucrose 110 ml @ 110 mls/hr DAILY@1200 IV 05/10/25 12:00 05/14/25 12:59 05/11/25 12:05 110 MLS/HR Carvedilol 6.25 mg Q12HR PO 05/11/25 22:00 Docusate Sodium 100 mg BID PO 05/11/25 22:00 Apixaban 5 mg BID PO 05/16/25 22:00 Examination: GENERAL:Normal, HEENT:Normal, NECK:Normal, LUNGS:Normal, CVS:Normal, ABDOMEN:Normal, MSK:Normal, SKIN:Normal, NEURO:Normal laboratory and microbiology Laboratory Tests 05/11/25 06:44 05/10/25 07:24 Test 05/11/25 06:44 Range/Units Serum Glucose 95 74-106 mg/dL Problem List/Assessment/Plan Problem List/Assessment/Plan Suspected bilateral pneumonia. Acute on chronic decompensated HFrEF, newly diagnosed, NYHA Class IV. 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 Subacute to chronic RLE thrombus. Likely LIZ on CKD. Acute anemia. Thrombocytosis. Nicotine/methamphetamine dependence. Medical noncompliance. Plan/Recommendation Continued all current supportive medical care. Patient has been seen by Raeann Haynes NP on my behalf. We have discussed the plan with the patient. The patient presents with a newly diagnosed cardiomyopathy. Transthoracic echocardiogram report pending at this time. Initiate Coreg and uptitrate as tolerated. Rest of GDMT for HFrEF with optimal renal function. Continue preload reduction, strict I&Os, daily weight, and maintain fluid restriction. Agree with Eliquis therapy for lower extremity DVT. Monitor H&H closely. Monitor ECG changes closely and notify. Nephrology recommendations. Medical management only given drug abuse and medical non-compliance. Additional plan as per the hospital course. Plan discussed with: Patient Dietary Evaluation Review Comments: 1) Encourage optimal PO intake 2) Refer to outpatient RD for weight management 3) Follow-up with cardiology and pulmonology 4) Follow-up with high school social science teacher r/t methamphetamine abuse 5) Continue to monitor I&O, labs, and skin integrity Expected Outcomes/Goals: 1) appetite and labs to improve 2) f/u in 3-5 days Date of Service: May 11, 2025 Billing Provider: FELIX BASSETT MD Cardiology Common Codes: [id number] HOSP CARE(High FELIX BASSETT MD May 11, 2025 20:47
[2025-05-11] MEDS: DOCUSATE SOD 100 MG CAP PO SCH (22:24)
[2025-05-11] MEDS: CARVEDILOL 3.125 MG TAB PO SCH (22:25)
[2025-05-12] VITALS (15 sets, daily range): BP systolic 120–160; BP diastolic 86–106; PULSE 72–95; RESP 16–18; TEMP 97.9–98.9; O2SAT 92–100
[2025-05-12 07:47] LABS: Hemoglobin 9.0 g/dL (13.5-17.5)
[2025-05-12 07:50] LABS: Hematocrit 27.9 % (41.0-53.0); Mean Corpuscular Hemoglobin 23.6 pg (28.0-32.0); Mean Corpuscular Volume 73.4 fL (80.0-100.0); Nucleated Red Blood Cells % 0.0 %
[2025-05-12 07:53] LABS: Anion Gap 10 (5-15); Carbon Dioxide 29 mmol/L (20-31); Chloride 102 mmol/L (98-107); Potassium 3.8 mmol/L (3.5-5.1); Sodium 141 mmol/L (136-145)
[2025-05-12 07:54] LABS: Calcium 9.2 mg/dL (8.7-10.4)
[2025-05-12 07:59] LABS: BUN/Creatinine Ratio 11.2 (10.0-20.0); Blood Urea Nitrogen 31 mg/dL (9-23); Glucose 84 mg/dL (74-106)
--- NOTE | 2025-05-12 12:59 | DVHSR ---
APPROVED REPORT EXAM: Two-dimensional and M-mode echocardiogram with Doppler and color Doppler. Blood Pressure: 155/95 mmHg INDICATION Chest Pain RISK FACTORS Height: 5'8", Weight: 143 DIMENSIONS LVDd6.0 (3.8-5.7cm)LA (2D)4.9 (1.9-4.0cm)Aortic Root3.5 (2.0-3.7cm) LVDs5.3 (2.5-4.0cm)LA (MM) (1.9-4.0cm)Aortic Cusp Exc2.4 (1.5-2.0cm) EF (%) 30.0 (55-70%)Rt. Atrium4.8 (1.9-4.0cm)Asc. Aorta3.8 cm IVSd1.1 (0.7-1.1cm)RV (D)4.7 (1.8-2.4cm) PWd1.1 (0.7-1.1cm) Mitral Valve MitralMitral Stenosis E wave0.91m/sMV Mean GR.mmHg E/A ratio0.02D MVAcm2 Aortic Valve Aortic ValveAortic Stenosis V10.84m/Prem Mean GR.6mmHg V21.57m/Prem Peak GR.10mmHg LVOT Diameter2.4 (1.8-2.4cm)Doppler AVA2.42cm2 Pulmonic Valve V21.15m/s Tricuspid Valve TR Velocity3.21m/s [id number] Conclusion lvef 40% abnormal septal motion dilated LV Left atrium enlarged mild mitral regurg small posterior pericardial effusion noted adjacent to rigth atrium, not HD compromise
--- NOTE | 2025-05-12 13:44 | DVHPNRES ---
Progress Note Date Seen: May 12, 2025 Resident Creating Document: REJI HYDE RESIDENT Medical Necessity Reason Pt with a Central, PICC or Fol: No Subjective Review of Systems Patient is a 49-year-old male with prior medical history of hypertension and 2 prior CVAs in 2019, who presents to the ED with chief complaint of shortness of breath. Per the patient and his , Jessica, patient has had chronic cough with clear expectoration since August, which for the last 3 months has been associated to increasing shortness of breath, clubbing of finger nails, and left chest pain. Yesterday, they state the patient's lips became cyanotic and worsening of chest pain described as sharp pain localized in left chest wall, non-radiating, intensity of 7/10, with no aggravating nor relieving factors, which prompted him to seek medical care. He denies fever, nausea, vomiting, and palpitations. On evaluation in the ED, patient was found in mild distress, afebrile, tachycardic, and hypertensive. 12 Lead EKG in the ED shows sinus tachycardia. Initial labs show WBCs 11.1, hemoglobin 8.9, hematocrit 27.7, platelets 530, creatinine 3.87, ALP 167, troponins negative, PT 12.4, INR 1.19, and D-dimer 4.7. Chest x-ray shows multifocal airspace disease. Due to presence of chest pain, tachycardia, and elevated D-dimer, V/Q mismatch scan was ordered to evaluate for possible PE, which showed low probability for PE. lower extremity venous duplex ultrasound shows presence of subacute to chronic appearing thrombus in the right calf peroneal vein with linear echogenicity within the lumen and partially compressible vein. He is being admitted for further work up and monitoring and will be started on IV antibiotics, IV fluids, breathing treatments , and heparin. Follow-up labs were significant for WBC 11.2, hemoglobin 7.7, hematocrit 24, 3.35, BUN 34, BNP 1109.17, and UDS positive for amphetamines. On admission, due to shortness of breath, patient required supplemental oxygen 4L via nasal cannula, which was subsequently lower to 2 L. he was evaluated by Cardiology who initiated dobutamine drip, and recommend avoidance of beta blockers at this time, initiation of GDM T with optimal renal function, She has a preload reduction, strict I's and O's, and maintenance of fluid restriction. Patient was evaluated by Nephrology who stated there is no emergent indication for dialysis at this time, recommend low-salt diet, fluid restriction, diuretic therapy q.12 hours if necessary, and monitoring of urinary output. 05/12/2025: Patient seen and examined at bedside, Reports improvement in shortness of breaths and is able to lie flat. Complaining of a new abdominal pain with generalized abdominal tenderness to palpation, ordered CT abdomen pelvis without IV oral contrast. Objective vital signs Vital Sign Date Time Temp Pulse Resp B/P (MAP) Pulse Ox O2 Delivery O2 Flow Rate FiO2 05/12/25 11:23 95 16 100 05/12/25 11:17 Room Air* 0 21 05/12/25 10:32 120/86 05/12/25 05:00 97.9 97.9 Total Intake and Output 05/11/25 05/11/25 05/12/25 15:00 23:00 07:00 Intake Total 410 ml 750 ml 840 ml Output Total 2300 ml Balance 410 ml -1550 ml 840 ml medications Current Medications Medications Dose Ordered Sig/Soraya Route Start Time Stop Time Status Last Admin Dose Admin Nitroglycerin 0.4 mg Q5MINP PRN SL 05/08/25 15:45 Morphine Sulfate 2 mg Q30M PRN IV 05/08/25 15:45 05/09/25 04:54 2 MG Ipratropium [place] 0.5 mg Q6HR NEB 05/08/25 15:45 05/12/25 11:15 0.5 MG Albuterol 1.25 mg Q6HR NEB 05/08/25 15:45 05/12/25 11:15 1.25 MG Azithromycin 250 ml @ 125 mls/hr DAILY IV 05/09/25 10:00 05/12/25 09:31 125 MLS/HR Ceftriaxone Sodium 50 ml @ 100 mls/hr DAILY@09 IV 05/09/25 09:00 05/12/25 09:31 100 MLS/HR Pantoprazole Sodium 40 mg DAILY@0600 PO 05/10/25 06:00 05/12/25 05:48 40 MG Furosemide 40 mg BIDD IV 05/09/25 18:00 05/12/25 05:48 40 MG Apixaban 10 mg BID PO 05/09/25 22:00 05/16/25 10:01 05/12/25 09:31 10 MG Iron Sucrose 110 ml @ 110 mls/hr DAILY@1200 IV 05/10/25 12:00 05/14/25 12:59 05/12/25 11:59 110 MLS/HR Carvedilol 6.25 mg Q12HR PO 05/11/25 22:00 05/12/25 09:32 6.25 MG Docusate Sodium 100 mg BID PO 05/11/25 22:00 05/12/25 09:31 100 MG Apixaban 5 mg BID PO 05/16/25 22:00 Examination General Appearance: Cooperative. Well developed. Well nourished. In mild distress Head Exam: Normal inspection Neck Exam: Normal inspection. Non-tender. Normal alignment Pulmonary/Respiratory: Chest non-tender. Bilateral crackles, no wheezing. Cardiovascular/Chest: Regular rate and rhythm. No murmurs. No JVD. Peripheral Pulses: 2+ Radial (R). 2+ Radial (L). 2+ Pedal (R). 2+ Pedal (L) Abdominal Exam: Normal bowel sounds. Soft. Generalized abdominal tenderness to palpation. No hepatospenomegaly. No masses Ankle Exam: Trace ankle edema Neuro/Mental Status: A&O x4. Coherent. Thoughts/Psych: Normal thought pattern. Appropriate mood and affect. Good judgement and insight Skin Exam: Normal inspection. Normal color. Warm. Dry laboratory and microbiology Laboratory Tests 05/12/25 06:37 Test 05/12/25 06:37 Range/Units Serum Glucose 84 74-106 mg/dL Microbiology Date/Time Source Procedure Growth Status 05/08/25 21:24 Voided Urine Urine Culture - Final Complete 05/08/25 17:10 Blood Blood Culture - Preliminary NO GROWTH AFTER 72 HOURS OF INCUBATION. Resulted Labs and/or images reviewed: Labs reviewed by me, Image(s) reviewed by me Problem List/Assessment/Plan Problem List/Assessment/Plan Community-acquired pneumonia, Gram-positive versus Gram-negative Possible sepsis, likely due to above -Chest x-ray: Multifocal airspace disease -Ceftriaxone 1 g IV daily -Azithromycin 500 mg IV daily -Blood cultures: no growth at 24 hours -Sputum cultures pending -Bolus of 150 cc normal saline Acute hypoxic respiratory failure, resolved -2L O2 NC, discontinued Acute intractable abdominal pain - ordered CT abdomen pelvis - monitor Possible Acute on Chronic HFrEF, EF 40% Likely Drug induced dilated cardiomyopathy Pericardial effusion, small -Dobutamine drip, discontinued -Carvedilol 6.25 mg q.12 hours p.o. -Initiate GDMT when renal function permits -Strict Is and Os -echocardiogram: lvef 40%. abnormal septal motion. dilated LV. Left atrium enlarged, mild mitral regurg. small posterior pericardial effusion noted adjacent to rigth atrium, not HD compromise -Furosemide 40 mg IV b.i.d. Questionable COPD, spirometry unavailable, in exacerbation -Albuterol med neb 1.25 mg q.6 hours -Ipratropium med nebs 0.5 mg q.6 hours Acute chest pain, rule out ACS - serial troponins 45, 40, 43 -Echo pending -Morphine 2 mg IV Q 30 p.r.n. -Nitroglycerin 0.4 mg sublingual p.r.n. -Aspirin 162 mg p.o. once Right distal DVT -Lower extremity venous duplex: Subacute to chronic appearing thrombus in the right calf peroneal vein with linear echogenicity within the lumen and partially compressible vein -Heparin drip, discontinued -Eliquis 10 mg PO b.i.d. for 7 days followed by Eliquis 5 mg p.o. b.i.d. Possible LIZ likely due to VMN, on questionable CKD, baseline unavailable - Monitor renal function - Avoid nephrotoxic drugs - Renal diet Microcytic anemia, likely of chronic disease due to above -Monitor H&H -Iron IVPB daily Hypertension, uncontrolled -Nifedipine 30 mg p.o. daily, discontinued -Metoprolol, discontinued per cardiology recommendations Methamphetamine use - UDS positive for methamphetamine - counseled on the importance of sensation of drug use over 15 minutes History of CVA History of tobacco use - counseled on cessation of tobacco for over 20 minutes Medical noncompliance GI prophylaxis: Protonix 40 mg p.o. daily Case discussed with Dr. Angelo. Goals of care discussed with the patient for more than 35 minutes: FULL CODE Plan discussed with: Patient, Other (RN) My Orders My Orders Orders - REJI HYDE RESIDENT Procedure Category Date Status Time Ct Ab Pel Wo Con-No CT 05/12/25 Logged Oral Or Iv 12:28 Dietary Evaluation Review Comments: 1) Encourage optimal PO intake 2) Refer to outpatient RD for weight management 3) Follow-up with cardiology and pulmonology 4) Follow-up with socially responsible investment adviser r/t methamphetamine abuse 5) Continue to monitor I&O, labs, and skin integrity Expected Outcomes/Goals: 1) appetite and labs to improve 2) f/u in 3-5 days Date of Service: May 12, 2025 Billing Provider: CLOVIS ANGELO MD Common Visit Codes: [id number] INP/OBS CARE(HIGH) REJI HYDE RESIDENT May 12, 2025 13:44 CLOVIS ANGELO MD May 12, 2025 17:52
--- NOTE | 2025-05-12 13:57 | DVHPN2 ---
Consult Progress Note Date Seen: May 12, 2025 Subjective Review of Systems: CVS:Normal, RESPIRATORY:Normal, NEURO:Normal Other Systems: Denies any cardiac symptoms Objective vital signs Vital Sign Date Time Temp Pulse Resp B/P (MAP) Pulse Ox O2 Delivery O2 Flow Rate FiO2 05/12/25 11:23 95 16 100 05/12/25 11:17 Room Air* 0 21 05/12/25 10:32 120/86 05/12/25 05:00 97.9 97.9 Total Intake and Output 05/11/25 05/11/25 05/12/25 15:00 23:00 07:00 Intake Total 410 ml 750 ml 840 ml Output Total 2300 ml Balance 410 ml -1550 ml 840 ml medications Current Medications Medications Dose Ordered Sig/Soraya Route Start Time Stop Time Status Last Admin Dose Admin Nitroglycerin 0.4 mg Q5MINP PRN SL 05/08/25 15:45 Morphine Sulfate 2 mg Q30M PRN IV 05/08/25 15:45 05/09/25 04:54 2 MG Ipratropium [place] 0.5 mg Q6HR NEB 05/08/25 15:45 05/12/25 11:15 0.5 MG Albuterol 1.25 mg Q6HR NEB 05/08/25 15:45 05/12/25 11:15 1.25 MG Azithromycin 250 ml @ 125 mls/hr DAILY IV 05/09/25 10:00 05/12/25 09:31 125 MLS/HR Ceftriaxone Sodium 50 ml @ 100 mls/hr DAILY@09 IV 05/09/25 09:00 05/12/25 09:31 100 MLS/HR Pantoprazole Sodium 40 mg DAILY@0600 PO 05/10/25 06:00 05/12/25 05:48 40 MG Furosemide 40 mg BIDD IV 05/09/25 18:00 05/12/25 05:48 40 MG Apixaban 10 mg BID PO 05/09/25 22:00 05/16/25 10:01 05/12/25 09:31 10 MG Iron Sucrose 110 ml @ 110 mls/hr DAILY@1200 IV 05/10/25 12:00 05/14/25 12:59 05/12/25 11:59 110 MLS/HR Carvedilol 6.25 mg Q12HR PO 05/11/25 22:00 05/12/25 09:32 6.25 MG Docusate Sodium 100 mg BID PO 05/11/25 22:00 05/12/25 09:31 100 MG Apixaban 5 mg BID PO 05/16/25 22:00 Examination: LUNGS:Normal, CVS:Normal, NEURO:Normal laboratory and microbiology Laboratory Tests 05/12/25 06:37 Test 05/12/25 06:37 Range/Units Serum Glucose 84 74-106 mg/dL Problem List/Assessment/Plan Problem List/Assessment/Plan Suspected bilateral pneumonia Acute on chronic decompensated HFrEF, newly diagnosed, NYHA Class IV 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 Daniels) The patient presents with a newly diagnosed cardiomyopathy. Transthoracic echocardiogram revealed LVEF 40% with abnormal septal motion, dilated LV, left atrium enlarged, and a small posterior pericardial effusion with no hemodynamic compromise. Continue Coreg and uptitrate as tolerated. Rest of GDMT for HFrEF with optimal renal function. Continue preload reduction, strict I&Os, daily weight, and maintain fluid restriction. Agree with Eliquis therapy for lower extremity DVT. Medical management only given drug abuse and medical non- compliance. Patient is cardiac stable at this time. We will sign off. Kindly call if in need to re-consult. Thank you for allowing us to participate in this patient's care. This medical document was created using an electronic medical record system with voice recognition software and computerized dictation system. Although this document has been carefully reviewed, there might still be some phonetic and typographical errors. Occasional wrong-word or ``sound-alike substitutions may have occurred due to the inherent limitations of voice recognition software. These areas are purely typographical due to imperfections of the software programs and do not reflect any compromise in the patient's medical care. Please read the chart carefully and recognize, using context, where these substitutions have occurred. Plan discussed with: Patient, Other Dietary Evaluation Review Comments: 1) Encourage optimal PO intake 2) Refer to outpatient RD for weight management 3) Follow-up with cardiology and pulmonology 4) Follow-up with director of social services r/t methamphetamine abuse 5) Continue to monitor I&O, labs, and skin integrity Expected Outcomes/Goals: 1) appetite and labs to improve 2) f/u in 3-5 days Date of Service: May 12, 2025 Billing Provider: ROSETTA CISNEROS Cardiology Common Codes: [id number] HOSP CARE(High ROSETTA CISNEROS May 12, 2025 13:57
--- NOTE | 2025-05-12 15:39 | DVH ---
Exam: CT CT AB PEL WO CON-NO ORAL OR IV History: Generalized abdominal tenderness Comparison Study: None Technique: Multidetector spiral CT of the abdomen was performed from lung bases to pubic symphysis. I maging was performed without IV contrast. Axial, coronal and sagittal multiplanar reformats were obta ined from the axial data set by the technologist. Radiation Dose : 1. Abdomen/Pelvis: CTDIvol 10.48 mGy, DLP 659.17 mGy*cm. Findings: Evaluation of solid organs is limited due to lack of intravenous contrast use. Lung Bases: Dependent atelectasis. Small bilateral pleural effusions, [id number]. Cardio megaly. Liver: The liver is normal in size. No focal lesions. Gallbladder and Biliary Tree: Unremarkable Spleen: Unremarkable Pancreas: The pancreas is grossly normal in appearance. Adrenal Glands: Unremarkable Kidneys: Kidneys are grossly normal without calculi or hydronephrosis. Bladder: Grossly unremarkable for degree of distention. Bowel: The stomach is grossly normal in appearance. Moderate colonic stool. The appendix is not visua lized; however, no secondary findings of acute appendicitis identified. Ascites: Absent Lymphadenopathy: No mesenteric, retroperitoneal or periportal lymphadenopathy. Abdominal Wall and Mesentery: Unremarkable. Vasculature: The visualized abdominal aorta is normal in size and caliber. Evaluation of abdominal a nd pelvic vessels is limited due to lack of intravenous contrast. Pelvic Organs: Unremarkable Musculoskeletal: No aggressive focal bony lesions, acute fractures or dislocation. Degenerative mandujano es of the spine. IMPRESSION: Limited examination secondary to patient motion artifact. Moderate volume colonic stool.
--- NOTE | 2025-05-12 16:06 | DVHPN2 ---
Progress Note Date Seen: May 12, 2025 Medical Necessity Reason Pt with a Central, PICC or Fol: No Subjective Patient reports: Feels better Objective vital signs Vital Sign Date Time Temp Pulse Resp B/P (MAP) Pulse Ox O2 Delivery O2 Flow Rate FiO2 05/12/25 13:00 98.3 90 18 120/86 (97) 95 98.3 05/12/25 11:17 Room Air* 0 21 Total Intake and Output 05/11/25 05/11/25 05/12/25 15:00 23:00 07:00 Intake Total 410 ml 750 ml 840 ml Output Total 2300 ml Balance 410 ml -1550 ml 840 ml medications Current Medications Medications Dose Ordered Sig/Soraya Route Start Time Stop Time Status Last Admin Dose Admin Nitroglycerin 0.4 mg Q5MINP PRN SL 05/08/25 15:45 Morphine Sulfate 2 mg Q30M PRN IV 05/08/25 15:45 05/09/25 04:54 2 MG Ipratropium [place] 0.5 mg Q6HR NEB 05/08/25 15:45 05/12/25 11:15 0.5 MG Albuterol 1.25 mg Q6HR NEB 05/08/25 15:45 05/12/25 11:15 1.25 MG Azithromycin 250 ml @ 125 mls/hr DAILY IV 05/09/25 10:00 05/12/25 09:31 125 MLS/HR Ceftriaxone Sodium 50 ml @ 100 mls/hr DAILY@09 IV 05/09/25 09:00 05/12/25 09:31 100 MLS/HR Pantoprazole Sodium 40 mg DAILY@0600 PO 05/10/25 06:00 05/12/25 05:48 40 MG Furosemide 40 mg BIDD IV 05/09/25 18:00 05/12/25 05:48 40 MG Apixaban 10 mg BID PO 05/09/25 22:00 05/16/25 10:01 05/12/25 09:31 10 MG Iron Sucrose 110 ml @ 110 mls/hr DAILY@1200 IV 05/10/25 12:00 05/14/25 12:59 05/12/25 11:59 110 MLS/HR Carvedilol 6.25 mg Q12HR PO 05/11/25 22:00 05/12/25 09:32 6.25 MG Docusate Sodium 100 mg BID PO 05/11/25 22:00 05/12/25 09:31 100 MG Apixaban 5 mg BID PO 05/16/25 22:00 Examination: GENERAL:Normal, CVS:Normal laboratory and microbiology Laboratory Tests 05/12/25 06:37 Test 05/12/25 06:37 Range/Units Serum Glucose 84 74-106 mg/dL Microbiology Date/Time Source Procedure Growth Status 05/08/25 21:24 Voided Urine Urine Culture - Final Complete 05/08/25 17:10 Blood Blood Culture - Preliminary NO GROWTH AFTER 72 HOURS OF INCUBATION. Resulted Problem List/Assessment/Plan Problem List/Assessment/Plan 41-year-old male with past medical history of stroke presents to the hospital complaining of weakness was found to have right lower extremity DVT and acute renal failure Acute kidney injury hemodynamically mediated Chronic kidney disease unspecified most likely advanced stage however baseline is unknown Right DVT Methamphetamine acute use Elevated BNP and pleural effusion highly likely congestive heart failure Bilateral nonobstructing kidney stones Anemia due to chronic kidney disease Low-salt diet Fluid restriction Agree with diuretic therapy q.12 hours, responds to diuretics Record urinary output Anemia likely due to blood loss and kidney disease, IV iron s/p[ Echo results EF 40% small pericardial effusion Renal diet No emergent indication for dialysis at this time function improving with fluid removal Plan discussed with: Patient Dietary Evaluation Review Comments: 1) Encourage optimal PO intake 2) Refer to outpatient RD for weight management 3) Follow-up with cardiology and pulmonology 4) Follow-up with social studies department chair r/t methamphetamine abuse 5) Continue to monitor I&O, labs, and skin integrity Expected Outcomes/Goals: 1) appetite and labs to improve 2) f/u in 3-5 days Total Time (mins): 33 ASHU ROD MD May 12, 2025 16:06
[2025-05-12] MEDS: POLYETHYLENE GLYCOL 17 GM PWDR PO ONE (18:01)
--- NOTE | 2025-05-12 20:55 | DVHPN2 ---
Consult Progress Note Date Seen: May 12, 2025 Subjective Other Systems: Patient was seen and evaluated in follow up. Transthoracic echocardiogram revealed LVEF 40% with abnormal septal motion, dilated LV, left atrium enlarged, and a small posterior pericardial effusion with no hemodynamic compromise. HGB 9, HCT 27.9, BUN 31, Supervisor [place] 2.77. Telemetry reviewed. Objective vital signs Vital Sign Date Time Temp Pulse Resp B/P (MAP) Pulse Ox O2 Delivery O2 Flow Rate FiO2 05/12/25 18:54 84 18 100 05/12/25 18:49 Room Air* 0 21 05/12/25 18:08 133/88 05/12/25 17:00 98.8 98.8 Total Intake and Output 05/11/25 05/11/25 05/12/25 15:00 23:00 07:00 Intake Total 410 ml 750 ml 840 ml Output Total 2300 ml Balance 410 ml -1550 ml 840 ml medications Current Medications Medications Dose Ordered Sig/Soraya Route Start Time Stop Time Status Last Admin Dose Admin Nitroglycerin 0.4 mg Q5MINP PRN SL 05/08/25 15:45 Morphine Sulfate 2 mg Q30M PRN IV 05/08/25 15:45 05/09/25 04:54 2 MG Ipratropium [place] 0.5 mg Q6HR NEB 05/08/25 15:45 05/12/25 18:49 0.5 MG Albuterol 1.25 mg Q6HR NEB 05/08/25 15:45 05/12/25 18:49 1.25 MG Azithromycin 250 ml @ 125 mls/hr DAILY IV 05/09/25 10:00 05/12/25 09:31 125 MLS/HR Ceftriaxone Sodium 50 ml @ 100 mls/hr DAILY@09 IV 05/09/25 09:00 05/12/25 09:31 100 MLS/HR Pantoprazole Sodium 40 mg DAILY@0600 PO 05/10/25 06:00 05/12/25 05:48 40 MG Furosemide 40 mg BIDD IV 05/09/25 18:00 05/12/25 18:08 40 MG Apixaban 10 mg BID PO 05/09/25 22:00 05/16/25 10:01 05/12/25 09:31 10 MG Iron Sucrose 110 ml @ 110 mls/hr DAILY@1200 IV 05/10/25 12:00 05/14/25 12:59 05/12/25 11:59 110 MLS/HR Carvedilol 6.25 mg Q12HR PO 05/11/25 22:00 05/12/25 09:32 6.25 MG Docusate Sodium 100 mg BID PO 05/11/25 22:00 05/12/25 09:31 100 MG Apixaban 5 mg BID PO 05/16/25 22:00 Polyethylene Glycol 17 gm DAILY PO 05/13/25 10:00 Examination: GENERAL:Normal, HEENT:Normal, NECK:Normal, LUNGS:Normal, CVS:Normal, ABDOMEN:Normal, MSK:Normal, SKIN:Normal, NEURO:Normal, :Normal laboratory and microbiology Laboratory Tests 05/12/25 06:37 Test 05/12/25 06:37 Range/Units Serum Glucose 84 74-106 mg/dL Problem List/Assessment/Plan Problem List/Assessment/Plan Suspected bilateral pneumonia. Acute on chronic decompensated HFrEF, newly diagnosed, NYHA Class IV. 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 Subacute to chronic RLE thrombus. Likely LIZ on CKD. Acute anemia. Thrombocytosis. Nicotine/methamphetamine dependence. Medical noncompliance. Plan/Recommendation Continued all current supportive medical care. Patient has been seen by Raeann Haynes NP on my behalf. We have discussed the plan with the patient. The patient presents with a newly diagnosed cardiomyopathy. Transthoracic echocardiogram revealed LVEF 40% with abnormal septal motion, dilated LV, left atrium enlarged, and a small posterior pericardial effusion with no hemodynamic compromise. Continue Coreg and uptitrate as tolerated. Rest of GDMT for HFrEF with optimal renal function. Continue preload reduction, strict I&Os, daily weight, and maintain fluid restriction. Agree with Eliquis therapy for lower extremity DVT. Medical management only given drug abuse and medical non-compliance. Patient is cardiac stable at this time. Additional plan as per the hospital course. Plan discussed with: Patient Dietary Evaluation Review Comments: 1) Encourage optimal PO intake 2) Refer to outpatient RD for weight management 3) Follow-up with cardiology and pulmonology 4) Follow-up with social services r/t methamphetamine abuse 5) Continue to monitor I&O, labs, and skin integrity Expected Outcomes/Goals: 1) appetite and labs to improve 2) f/u in 3-5 days Date of Service: May 12, 2025 Billing Provider: FELIX BASSETT MD Cardiology Common Codes: [id number] HOSP CARE(High FELIX BASSETT MD May 12, 2025 20:55
[2025-05-13] VITALS (17 sets, daily range): BP systolic 135–170; BP diastolic 87–103; PULSE 72–90; RESP 16–20; TEMP 97.7–99.1; O2SAT 95–100
[2025-05-13] MEDS: hydrALAZINE HCL 20 MG/ML VL IV ONE ×2 (01:30→14:44)
[2025-05-13] MEDS: ACETAMINOPHEN 325 MG TAB PO ONE (01:42)
[2025-05-13 08:08] LABS: Hemoglobin 9.8 g/dL (13.5-17.5); Mean Corpuscular Hemoglobin 23.9 pg (28.0-32.0)
[2025-05-13 08:11] LABS: Hematocrit 29.6 % (41.0-53.0); Mean Corpuscular Volume 72.5 fL (80.0-100.0); Nucleated Red Blood Cells % 0.1 %
[2025-05-13 08:18] LABS: Chloride 100 mmol/L (98-107); Potassium 4.0 mmol/L (3.5-5.1); Sodium 141 mmol/L (136-145)
[2025-05-13 08:19] LABS: Anion Gap 11 (5-15); Carbon Dioxide 30 mmol/L (20-31)
[2025-05-13 08:20] LABS: Calcium 9.4 mg/dL (8.7-10.4)
[2025-05-13 08:24] LABS: BUN/Creatinine Ratio 11.8 (10.0-20.0); Glucose 88 mg/dL (74-106)
[2025-05-13 08:26] LABS: Blood Urea Nitrogen 35 mg/dL (9-23)
[2025-05-13] MEDS: POLYETHYLENE GLYCOL 17 GM PWDR PO SCH (10:00)
--- NOTE | 2025-05-13 16:12 | DVHPNRES ---
Progress Note Date Seen: May 13, 2025 Resident Creating Document: SPENCER FELDMAN RESIDENT Medical Necessity Reason Pt with a Central, PICC or Fol: No Subjective Review of Systems Patient is a 49-year-old male with prior medical history of hypertension and 2 prior CVAs in 2019, who presents to the ED with chief complaint of shortness of breath. Per the patient and his , Jessica, patient has had chronic cough with clear expectoration since August, which for the last 3 months has been associated to increasing shortness of breath, clubbing of finger nails, and left chest pain. Yesterday, they state the patient's lips became cyanotic and worsening of chest pain described as sharp pain localized in left chest wall, non-radiating, intensity of 7/10, with no aggravating nor relieving factors, which prompted him to seek medical care. He denies fever, nausea, vomiting, and palpitations. On evaluation in the ED, patient was found in mild distress, afebrile, tachycardic, and hypertensive. 12 Lead EKG in the ED shows sinus tachycardia. Initial labs show WBCs 11.1, hemoglobin 8.9, hematocrit 27.7, platelets 530, creatinine 3.87, ALP 167, troponins negative, PT 12.4, INR 1.19, and D-dimer 4.7. Chest x-ray shows multifocal airspace disease. Due to presence of chest pain, tachycardia, and elevated D-dimer, V/Q mismatch scan was ordered to evaluate for possible PE, which showed low probability for PE. lower extremity venous duplex ultrasound shows presence of subacute to chronic appearing thrombus in the right calf peroneal vein with linear echogenicity within the lumen and partially compressible vein. He is being admitted for further work up and monitoring and will be started on IV antibiotics, IV fluids, breathing treatments , and heparin. Follow-up labs were significant for WBC 11.2, hemoglobin 7.7, hematocrit 24, 3.35, BUN 34, BNP 1109.17, and UDS positive for amphetamines. On admission, due to shortness of breath, patient required supplemental oxygen 4L via nasal cannula, which was subsequently lower to 2 L. he was evaluated by Cardiology who initiated dobutamine drip, and recommend avoidance of beta blockers at this time, initiation of GDM T with optimal renal function, She has a preload reduction, strict I's and O's, and maintenance of fluid restriction. Patient was evaluated by Nephrology who stated there is no emergent indication for dialysis at this time, recommend low-salt diet, fluid restriction, diuretic therapy q.12 hours if necessary, and monitoring of urinary output. Patient seen at bedside. He is AOx4, states that he feels better, yesterday he had some abdominal pain that resolved after a bowel movement. Currently denies chest pain, shortness of breath, and cough. He is able to sleep, is tolerating oral diet, and is ambulating around his room. patient has been persistently hypertensive, requiring doses of hydralazine. Nifedipine has been initiated for increased blood pressure control. We will continue to monitor his blood pressure. Possible discharge tomorrow. Objective vital signs Vital Sign Date Time Temp Pulse Resp B/P (MAP) Pulse Ox O2 Delivery O2 Flow Rate FiO2 05/13/25 14:45 155/111 05/13/25 13:25 98.6 84 18 97 98.6 05/13/25 12:01 Room Air* 0 21 Total Intake and Output 05/12/25 05/12/25 05/13/25 15:00 23:00 07:00 Intake Total 410 ml 720 ml 1000 ml Output Total 1300 ml Balance 410 ml -580 ml 1000 ml medications Current Medications Medications Dose Ordered Sig/Soraya Route Start Time Stop Time Status Last Admin Dose Admin Nitroglycerin 0.4 mg Q5MINP PRN SL 05/08/25 15:45 Morphine Sulfate 2 mg Q30M PRN IV 05/08/25 15:45 05/09/25 04:54 2 MG Ipratropium [place] 0.5 mg Q6HR NEB 05/08/25 15:45 05/13/25 12:00 0.5 MG Albuterol 1.25 mg Q6HR NEB 05/08/25 15:45 05/13/25 12:00 1.25 MG Azithromycin 250 ml @ 125 mls/hr DAILY IV 05/09/25 10:00 05/13/25 11:35 125 MLS/HR Ceftriaxone Sodium 50 ml @ 100 mls/hr DAILY@09 IV 05/09/25 09:00 05/13/25 10:50 100 MLS/HR Pantoprazole Sodium 40 mg DAILY@0600 PO 05/10/25 06:00 05/13/25 06:08 40 MG Furosemide 40 mg BIDD IV 05/09/25 18:00 05/13/25 06:08 40 MG Apixaban 10 mg BID PO 05/09/25 22:00 05/16/25 10:01 05/13/25 10:41 10 MG Iron Sucrose 110 ml @ 110 mls/hr DAILY@1200 IV 05/10/25 12:00 05/14/25 12:59 05/13/25 14:48 110 MLS/HR Carvedilol 6.25 mg Q12HR PO 05/11/25 22:00 05/13/25 10:41 6.25 MG Docusate Sodium 100 mg BID PO 05/11/25 22:00 05/12/25 21:17 100 MG Apixaban 5 mg BID PO 05/16/25 22:00 Polyethylene Glycol 17 gm DAILY PO 05/13/25 10:00 Nifedipine 30 mg DAILY PO 05/13/25 13:15 05/13/25 14:45 30 MG Examination General: Patient alert and oriented in person place and time. Patient following commands HEENT: Normocephalic, atraumatic, reactive pupils, EOM intact, pink conjunctiva, non-icteric sclera, pink moist mucous membrane Respiratory/pulmonary: Bilateral chest expansion, no pain on palpation of chest wall, vesicular murmurs present in almost all lung lackey, bilateral crackles in lower lung lackey. Abdomen: Abdomen nondistended, normal bowel sounds, soft, no pain to palpation in any of the abdominal quadrants, no palpable masses. Cardiovascular: Normal RRR, normal S1 and S2 Extremities: Clubbing of finger nails on both hands, no cyanosis, bilateral lower extremity edema +2, right calf is warm to the touch, deformity of right ankle secondary to previous trauma and surgery Peripheral pulses: normal pulses Skin: No rashes or pruritus Neurological: Intact cranial nerves with no focal neurologic deficits laboratory and microbiology Laboratory Tests 05/13/25 07:28 Test 05/13/25 07:28 Range/Units Serum Glucose 88 74-106 mg/dL Microbiology Date/Time Source Procedure Growth Status 05/08/25 21:24 Voided Urine Urine Culture - Final Complete 05/08/25 17:10 Blood Blood Culture - Preliminary NO GROWTH AFTER 72 HOURS OF INCUBATION. Resulted Problem List/Assessment/Plan Problem List/Assessment/Plan Assessment and Plan: Possible sepsis, likely due to pneumonia ( Gram-positive/Gram-negative ) -Chest x-ray: Multifocal airspace disease -Ceftriaxone 1 g IV daily -Azithromycin 500 mg IV daily -Blood cultures: no growth at 24 hours -Sputum cultures pending -Bolus of 150 cc normal saline Possible Acute on Chronic HFrEF -Dobutamine drip -Initiate GDMT when renal function permits -Strict Is and Os -echocardiogram: lvef 40%. abnormal septal motion. dilated LV. Left atrium enlarged, mild mitral regurg. small posterior pericardial effusion noted adjacent to rigth atrium, not HD compromise -Furosemide 40 mg IV b.i.d. Drug induced cardiomyopathy Questionable COPD, spirometry unavailable, in exacerbation -Albuterol med neb 1.25 mg q.6 hours -Ipratropium med nebs 0.5 mg q.6 hours Acute chest pain, ruled out ACS -Echo pending -Morphine 2 mg IV Q 30 p.r.n. -Nitroglycerin 0.4 mg sublingual p.r.n. -Aspirin 162 mg p.o. once Acute intractable abdominal pain, likely due to constipation - Abdominal CT: moderate volume colonic stool - Colace 100 mg p.o. b.i.d. - MiraLAX 17 g p.o. daily Right distal DVT -Lower extremity venous duplex: Subacute to chronic appearing thrombus in the right calf peroneal vein with linear echogenicity within the lumen and partially compressible vein -Heparin drip, discontinued -Eliquis 10 mg PO Possible LIZ likely due to VMN, on questionable CKD, baseline unavailable - Monitor renal function - Avoid nephrotoxic drugs - Renal diet Microcytic anemia, likely of chronic disease due to above -Monitor H&H -Iron IVPB daily Hypertensive urgency - hydralazine 10 mg IV once - hydralazine 10 mg IV TN SBP > 170 Hypertension, uncontrolled -Nifedipine 30 mg p.o. daily, initiated -Metoprolol, discontinued per cardiology recommendations Methamphetamine use - UDS positive for methamphetamine - counseled on the importance of sensation of drug use over 15 minutes History of CVA History of tobacco use - counseled on cessation of tobacco for over 20 minutes Medical noncompliance GI prophylaxis: Protonix 40 mg p.o. daily Case discussed with Dr. Martinez Goals of care discussed with the patient and his , Jessica, for over 35 minutes, they state they understand and agree. FULL CODE. Plan discussed with: Patient My Orders My Orders Orders - SPENCER FELDMAN Procedure Category Date Status Time Nifedipine Er PHA 05/13/25 In Process (Procardia Xl 13:15 Schedule For Dc TERE 05/13/25 In Process Clinic F/U 13:05 Complete Blood Count LAB 05/14/25 Verified 04:00 Basic Metabolic Panel LAB 05/14/25 Verified 04:00 Dietary Evaluation Review Comments: 1) Encourage optimal PO intake 2) Refer to outpatient RD for weight management 3) Follow-up with cardiology and pulmonology 4) Follow-up with protective services social worker r/t methamphetamine abuse 5) Continue to monitor I&O, labs, and skin integrity Expected Outcomes/Goals: 1) appetite and labs to improve 2) f/u in 3-5 days SPENCER FELDMAN RESIDENT May 13, 2025 16:12
[2025-05-13] MEDS ORDERED: hydrALAZINE HCL 20 MG/ML VL IV PRN (16:15)
--- NOTE | 2025-05-13 18:45 | DVHPN2 ---
Progress Note Date Seen: May 13, 2025 Medical Necessity Reason Pt with a Central, PICC or Fol: No Subjective Patient reports: No new complaints, Feels better Review of Systems: HEENT:Normal, CVS:Normal, RESPIRATORY:Normal, GI:Normal, :Normal, MSK:Normal, NEURO:Normal Objective vital signs Vital Sign Date Time Temp Pulse Resp B/P (MAP) Pulse Ox O2 Delivery O2 Flow Rate FiO2 05/13/25 17:52 147/102 05/13/25 17:42 99.1 83 18 97 99.1 05/13/25 12:01 Room Air* 0 21 Total Intake and Output 05/12/25 05/12/25 05/13/25 14:59 22:59 06:59 Intake Total 410 ml 720 ml 1000 ml Output Total 1300 ml Balance 410 ml -580 ml 1000 ml medications Current Medications Medications Dose Ordered Sig/Soraya Route Start Time Stop Time Status Last Admin Dose Admin Nitroglycerin 0.4 mg Q5MINP PRN SL 05/08/25 15:45 Morphine Sulfate 2 mg Q30M PRN IV 05/08/25 15:45 05/09/25 04:54 2 MG Ipratropium [place] 0.5 mg Q6HR NEB 05/08/25 15:45 05/13/25 12:00 0.5 MG Albuterol 1.25 mg Q6HR NEB 05/08/25 15:45 05/13/25 12:00 1.25 MG Azithromycin 250 ml @ 125 mls/hr DAILY IV 05/09/25 10:00 05/13/25 11:35 125 MLS/HR Ceftriaxone Sodium 50 ml @ 100 mls/hr DAILY@09 IV 05/09/25 09:00 05/13/25 10:50 100 MLS/HR Pantoprazole Sodium 40 mg DAILY@0600 PO 05/10/25 06:00 05/13/25 06:08 40 MG Furosemide 40 mg BIDD IV 05/09/25 18:00 05/13/25 17:52 40 MG Apixaban 10 mg BID PO 05/09/25 22:00 05/16/25 10:01 05/13/25 10:41 10 MG Iron Sucrose 110 ml @ 110 mls/hr DAILY@1200 IV 05/10/25 12:00 05/14/25 12:59 05/13/25 14:48 110 MLS/HR Carvedilol 6.25 mg Q12HR PO 05/11/25 22:00 05/13/25 10:41 6.25 MG Docusate Sodium 100 mg BID PO 05/11/25 22:00 05/12/25 21:17 100 MG Apixaban 5 mg BID PO 05/16/25 22:00 Polyethylene Glycol 17 gm DAILY PO 05/13/25 10:00 Nifedipine 30 mg DAILY PO 05/13/25 13:15 05/13/25 14:45 30 MG Hydralazine HCl 10 mg Q8HP PRN IV 05/13/25 16:15 laboratory and microbiology Laboratory Tests 05/13/25 07:28 Test 05/13/25 07:28 Range/Units Serum Glucose 88 74-106 mg/dL Microbiology Date/Time Source Procedure Growth Status 05/08/25 21:24 Voided Urine Urine Culture - Final Complete 05/08/25 17:10 Blood Blood Culture - Final NO GROWTH AFTER 5 DAYS OF INCUBATION. Complete Problem List/Assessment/Plan Problem List/Assessment/Plan Acute kidney injury hemodynamically mediated Chronic kidney disease unspecified most likely advanced stage however baseline is unknown Right DVT Methamphetamine acute use Elevated BNP and pleural effusion highly likely congestive heart failure Bilateral nonobstructing kidney stones Anemia due to chronic kidney disease recs Low-salt diet Fluid restriction Agree with diuretic therapy Plan discussed with: Patient Dietary Evaluation Review Comments: 1) Encourage optimal PO intake 2) Refer to outpatient RD for weight management 3) Follow-up with cardiology and pulmonology 4) Follow-up with social services manager r/t methamphetamine abuse 5) Continue to monitor I&O, labs, and skin integrity Expected Outcomes/Goals: 1) appetite and labs to improve 2) f/u in 3-5 days ROSALVA LUCIO MD May 13, 2025 18:45
--- NOTE | 2025-05-13 23:36 | DVHPN2 ---
Progress Note - Dictate Date Seen: May 13, 2025 Medical Necessity Reason Pt with a Central, PICC or Fol: No Subjective Patient was seen and evaluated in follow up. No overnight events. The patient is on room air. Patient reports he had abdominal pain yesterday, however resolved after having a BM. Patient is tolerating po intake. BP has been elevated, requiring IV Hydralazine. Telemetry reviewed. vital signs Vital Sign Date Time Temp Pulse Resp B/P (MAP) Pulse Ox O2 Delivery O2 Flow Rate FiO2 05/13/25 21:13 86 146/102 05/13/25 21:00 97.9 18 100 97.9 05/13/25 20:00 Room Air* 0 21 Total Intake and Output 05/12/25 05/12/25 05/13/25 15:00 23:00 07:00 Intake Total 410 ml 720 ml 1000 ml Output Total 1300 ml Balance 410 ml -580 ml 1000 ml medications Current Medications Medications Dose Ordered Sig/Soraya Route Start Time Stop Time Status Last Admin Dose Admin Nitroglycerin 0.4 mg Q5MINP PRN SL 05/08/25 15:45 Morphine Sulfate 2 mg Q30M PRN IV 05/08/25 15:45 05/09/25 04:54 2 MG Ipratropium [place] 0.5 mg Q6HR NEB 05/08/25 15:45 05/13/25 18:48 0.5 MG Albuterol 1.25 mg Q6HR NEB 05/08/25 15:45 05/13/25 18:48 1.25 MG Azithromycin 250 ml @ 125 mls/hr DAILY IV 05/09/25 10:00 05/13/25 11:35 125 MLS/HR Ceftriaxone Sodium 50 ml @ 100 mls/hr DAILY@09 IV 05/09/25 09:00 05/13/25 10:50 100 MLS/HR Pantoprazole Sodium 40 mg DAILY@0600 PO 05/10/25 06:00 05/13/25 06:08 40 MG Furosemide 40 mg BIDD IV 05/09/25 18:00 05/13/25 17:52 40 MG Apixaban 10 mg BID PO 05/09/25 22:00 05/16/25 10:01 05/13/25 21:11 10 MG Iron Sucrose 110 ml @ 110 mls/hr DAILY@1200 IV 05/10/25 12:00 05/14/25 12:59 05/13/25 14:48 110 MLS/HR Carvedilol 6.25 mg Q12HR PO 05/11/25 22:00 05/13/25 21:13 6.25 MG Docusate Sodium 100 mg BID PO 05/11/25 22:00 05/13/25 21:10 100 MG Apixaban 5 mg BID PO 05/16/25 22:00 Polyethylene Glycol 17 gm DAILY PO 05/13/25 10:00 Nifedipine 30 mg DAILY PO 05/13/25 13:15 05/13/25 14:45 30 MG Hydralazine HCl 10 mg Q8HP PRN IV 05/13/25 16:15 objective GENERAL: Alert and oriented x 3. No acute distress. Unkept. EYES: PERRL, EOMI. Anicteric. HENT: Moist mucous membranes. LUNGS: Crackles to bilateral breath sounds. CARDIOVASCULAR: Regular rate and rhythm. ABDOMEN: Soft, non-tender and non-distended. EXTREMITIES: 2+ BLE edema. NEUROLOGIC: No focal neurological deficits. SKIN: Warm, dry. laboratory and microbiology Laboratory Tests 05/13/25 07:28 Test 05/13/25 07:28 Range/Units Serum Glucose 88 74-106 mg/dL Problem List Suspected bilateral pneumonia. Acute on chronic decompensated HFrEF, newly diagnosed, NYHA Class IV. 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 Subacute to chronic RLE thrombus. Likely LIZ on CKD. Acute anemia. Thrombocytosis. Nicotine/methamphetamine dependence. Medical noncompliance. Assessment/Plan Continued all current supportive medical care. Eliquis. IV antibiotics as ordered. Coreg, Nifedipine. Diuretics with Lasix. V Hydralazine for SBP > 170. Morphine for pain management. Nitro SL. GI prophylactics. Additional plan as per the hospital course. Dietary Evaluation Review Comments: 1) Encourage optimal PO intake 2) Refer to outpatient RD for weight management 3) Follow-up with cardiology and pulmonology 4) Follow-up with long term care social worker r/t methamphetamine abuse 5) Continue to monitor I&O, labs, and skin integrity Expected Outcomes/Goals: 1) appetite and labs to improve 2) f/u in 3-5 days Plan discussed with: Patient FELIX BASSETT MD May 13, 2025 23:35
[2025-05-14] VITALS (14 sets, daily range): BP systolic 122–138; BP diastolic 66–92; PULSE 73–89; RESP 16–20; TEMP 97.6–98.9; O2SAT 95–99
[2025-05-14 07:02] LABS: Chloride 100 mmol/L (98-107); Potassium 3.6 mmol/L (3.5-5.1); Sodium 140 mmol/L (136-145)
[2025-05-14 07:03] LABS: Anion Gap 10 (5-15); Carbon Dioxide 30 mmol/L (20-31)
[2025-05-14 07:04] LABS: Calcium 9.4 mg/dL (8.7-10.4)
[2025-05-14 07:08] LABS: BUN/Creatinine Ratio 13.1 (10.0-20.0); Glucose 92 mg/dL (74-106)
[2025-05-14 07:09] LABS: Blood Urea Nitrogen 37 mg/dL (9-23)
[2025-05-14 07:15] LABS: Hemoglobin 10.0 g/dL (13.5-17.5)
[2025-05-14 07:17] LABS: Hematocrit 30.9 % (41.0-53.0); Mean Corpuscular Hemoglobin 23.9 pg (28.0-32.0); Mean Corpuscular Volume 73.6 fL (80.0-100.0); Nucleated Red Blood Cells % 0.1 %
[2025-05-14] MEDS ORDERED: CARV-214 PO (10:09)
[2025-05-14] MEDS ORDERED: FURO1TAB33 PO (10:09)
[2025-05-14] MEDS ORDERED: APIX5TAB PO (10:09)
[2025-05-14] MEDS ORDERED: AUG875T PO (10:09)
[2025-05-14] MEDS ORDERED: NIFE1TAB31 PO (10:09)
[2025-05-14] MEDS ORDERED: UMEC1AER IN (10:10)
--- NOTE | 2025-05-14 16:16 | DVHDSRES ---
Discharge Summary Date of Admission Resident Creating Document: SPENCER FELDMAN RESIDENT May 08, 2025 at 15:32 Date of Discharge: May 14, 2025 Labs/Diagnostic Data: Laboratory Results Test 05/14/25 06:11 05/12/25 06:37 05/11/25 06:44 05/09/25 21:31 White Blood Count 7.3 10^3/uL (4.4-10.8) Red Blood Count 4.20 10^6/uL (4.5-5.90) Hemoglobin 10.0 g/dL (13.5-17.5) Hematocrit 30.9 % (41.0-53.0) Mean Corpuscular Volume 73.6 fL (80.0-100.0) Mean Corpuscular Hemoglobin 23.9 pg (28.0-32.0) Mean Corpuscular Hemoglobin Concent 32.4 g/dL (32.0-36.0) Red Cell Distribution Width 17.5 % (11.8-14.3) Platelet Count 636 10^3/uL (140-450) Mean Platelet Volume 7.0 fL (6.9-10.8) Neutrophils (%) (Auto) 62.2 % (37.0-80.0) Lymphocytes (%) (Auto) 19.6 % (10.0-50.0) Monocytes (%) (Auto) 7.3 % (0.0-12.0) Eosinophils (%) (Auto) 9.9 % (0.0-7.0) Basophils (%) (Auto) 1.0 % (0.0-2.0) Neutrophils # (Auto) 4.6 10 ^3/uL (1.6-8.6) Lymphocytes # (Auto) 1.4 10 ^3/uL (0.4-5.4) Monocytes # (Auto) 0.5 10 ^3/uL (0-1.3) Eosinophils # (Auto) 0.7 10 ^3/uL (0-0.8) Basophils # (Auto) 0.1 10 ^3/uL (0-0.2) Nucleated Red Blood Cells 0.1 % Sodium Level 140 mmol/L (136-145) Potassium Level 3.6 mmol/L (3.5-5.1) Chloride Level 100 mmol/L (98-107) Carbon Dioxide Level 30 mmol/L (20-31) Anion Gap 10 (5-15) Blood Urea Nitrogen 37 mg/dL (9-23) Creatinine 2.82 mg/dL (0.700-1.30) Glomerular Filtration Rate Calc 27 mL/min (>90) BUN/Creatinine Ratio 13.1 (10.0-20.0) Serum Glucose 92 mg/dL (74-106) Calcium Level 9.4 mg/dL (8.7-10.4) B-Type Natriuretic Peptide 416.26 pg/mL (0-100) Total Bilirubin 0.2 mg/dL (0.2-1.0) Aspartate Amino Transferase (AST) 23 U/L (13-40) Alanine Aminotransferase (ALT) 16 U/L (7-40) Alkaline Phosphatase 171 U/L (46-116) Total Protein 7.1 g/dL (5.7-8.2) Albumin 3.6 g/dL (3.2-4.8) Prothrombin Time 12.2 sec (9.3-11.8) Prothrombin Time INR 1.17 (0.9-1.15) Activated Partial Thromboplast Time 52.1 SEC (24.5-34.5) Test 05/09/25 17:54 05/09/25 06:13 05/09/25 02:30 05/09/25 00:20 Iron Level 11 ug/dL (65-175) Total Iron Binding Capacity 197 ug/dL (250-425) Percent Iron Saturation 5.6 % (20-55) Ferritin 285.4 ng/mL (22-322) Blood Gas Specimen Type Arterial Blood Gas Sample Site Right radial Blood Gas Patient Temperature 37.0 Arterial Blood Date Drawn [id number] Arterial Blood pH 7.462 (7.350-7.450) Arterial Blood Partial Pressure CO2 32.5 mmHg (35.0-48.0) Arterial Blood Partial Pressure O2 63.1 mmHg (83.0-108.0) Arterial Blood HCO3 22.7 mmol/L (21.0-28.0) Arterial Blood Oxygen Saturation 92.2 % (94.0-98.0) Arterial Blood Base Excess -0.8 mmol/L (-2.0-3.0) Arterial Blood Oxyhemoglobin 90.3 % (94.0-98.0) Arterial Blood Carboxyhemoglobin 1.3 % (0.5-1.5) Arterial Blood Methemoglobin 0.8 % (0.0-1.5) Mynor Test Yes Blood Gas Total Hemoglobin 8.50 g/dL (13.5-17.5) Blood Gas Liter Flow 5.00 Blood Gas Modality Nasal cannula FiO2 % 40.0 Creatine Kinase 104 U/L (46-171) Troponin I High Sensitivity 43 ng/L (</=54) Test 05/08/25 21:24 05/08/25 18:05 05/08/25 16:01 05/08/25 08:11 Urine Color Yellow (Yellow) Urine Clarity Turbid (Clear) Urine pH 6.0 (5.0-9.0) Urine Specific [place] 1.017 (1.001-1.035) Urine Protein 1+ (Negative) Urine Ketones Negative (Negative) Urine Blood Trace /uL (Negative) Urine Nitrite Negative (Negative) Urine Bilirubin Negative (Negative) Urine Urobilinogen 2 mg/dL (Negative) Urine Leukocyte Esterase Negative /uL (Negative) Urine RBC 9 /hpf (0 - 3) Urine Microscopic WBC 7 /HPF (0-3) Urine Squamous Epithelial Cells Few /hpf (<5) Urine Bacteria Few /hpf (None Seen) Urine Mucus Few (None Seen) Urine Sperm Present /hpf (None Seen) Urine Creatinine 147.06 mg/dL (30.0-125.0) Urine Glucose Normal mg/dL (Normal) Urine Total Protein 181.7 mg/dL (1-14) Urine Opiates Screen Neg (NEGATIVE) Urine Fentanyl Screen Neg (NEGATIVE) Urine Barbiturates Screen Neg (NEGATIVE) Urine Phencyclidine Screen Neg (NEGATIVE) Urine Amphetamines Screen Pos (NEGATIVE) Urine Benzodiazepines Screen Neg (NEGATIVE) Urine Cocaine Screen Neg (NEGATIVE) Urine Cannabinoids Screen Neg (NEGATIVE) Influenza Type A Antigen Negative (Negative) Influenza Type B Antigen Negative (Negative) SARS-CoV-2 Antigen (Rapid) Negative (NEGATIVE) Hemoglobin A1c 5.5 % A1C (<5.7) Phosphorus Level 3.5 mg/dL (2.4-5.1) Magnesium Level 1.7 mg/dL (1.6-2.6) Triglycerides Level 90 mg/dL (< 150) Cholesterol Level 116 mg/dL (< 200) LDL Cholesterol 78 mg/dL (< 100) HDL Cholesterol 30 mg/dL (40-59) Thyroid Stimulating Hormone (TSH) 1.01 uIU/mL (0.55-4.78) D-Dimer, Quantitative 4.70 mg/L FEU (0.0-0.49) Other Laboratory Tests 05/14/25 06:11 Brief Hx & Hospital Course: Patient is a 49-year-old male with prior medical history of hypertension and 2 prior CVAs in 2019, who presents to the ED with chief complaint of shortness of breath. Per the patient and his , Jessica, patient has had chronic cough with clear expectoration since August, which for the last 3 months has been associated to increasing shortness of breath, clubbing of finger nails, and left chest pain. Yesterday, they state the patient's lips became cyanotic and worsening of chest pain described as sharp pain localized in left chest wall, non-radiating, intensity of 7/10, with no aggravating nor relieving factors, which prompted him to seek medical care. He denies fever, nausea, vomiting, and palpitations. On evaluation in the ED, patient was found in mild distress, afebrile, tachycardic, and hypertensive. 12 Lead EKG in the ED shows sinus tachycardia. Initial labs show WBCs 11.1, hemoglobin 8.9, hematocrit 27.7, platelets 530, creatinine 3.87, ALP 167, troponins negative, PT 12.4, INR 1.19, and D-dimer 4.7. Chest x-ray shows multifocal airspace disease. Due to presence of chest pain, tachycardia, and elevated D-dimer, V/Q mismatch scan was ordered to evaluate for possible PE, which showed low probability for PE. lower extremity venous duplex ultrasound shows presence of subacute to chronic appearing thrombus in the right calf peroneal vein with linear echogenicity within the lumen and partially compressible vein. He is being admitted for further work up and monitoring and will be started on IV antibiotics, IV fluids, breathing treatments , and heparin. Follow-up labs were significant for WBC 11.2, hemoglobin 7.7, hematocrit 24, 3.35, BUN 34, BNP 1109.17, and UDS positive for amphetamines. On admission, due to shortness of breath, patient required supplemental oxygen 4L via nasal cannula, which was subsequently lower to 2 L. He was evaluated by Cardiology who initiated dobutamine drip, and recommend avoidance of beta blockers at this time, initiation of GDM T with optimal renal function, preload reduction, strict I's and O's, and maintenance of fluid restriction. Patient was evaluated by Nephrology who stated there is no emergent indication for dialysis at this time, recommend low-salt diet, fluid restriction, diuretic therapy q.12 hours if necessary, and monitoring of urinary output. heparin drip was discontinued, and Eliquis was initiated. Patient continued to progress favorably, Dobutamine was discontinued and Coreg was started and nifedipine was added for better blood pressure control. evaluation today, the patient states that he feels well, chest pain has resolved, shortness of breath has resolved, he has been able to sleep flat without difficulty, and swelling has resolved. Vitals have been stable. Follow up labs are within range, with creatinine showing improvements. He was evaluated by PT, who states that the patient can ambulate well with a walker. He is considered stable for discharge home with new medications a follow-up appointment in the discharge clinic. GDM T will be started once renal function per movements. The patient has been thoroughly educated on the importance of complete drug cessation and medication adherence. Patient was thoroughly educated on new medications recommendations of lifestyle modifications as well as portions of complete drug cessation. He states he understands and agrees. General: Patient alert and oriented in person place and time. Patient following commands HEENT: Normocephalic, atraumatic, reactive pupils, EOM intact, pink conjunctiva, non-icteric sclera, pink moist mucous membrane Respiratory/pulmonary: Bilateral chest expansion, no pain on palpation of chest wall, vesicular murmurs present in almost all lung lackey, improved bilateral crackles in lower lung lackey. Abdomen: Abdomen nondistended, normal bowel sounds, soft, no pain to palpation in any of the abdominal quadrants, no palpable masses. Cardiovascular: Normal RRR, normal S1 and S2 Extremities: Clubbing of finger nails on both hands, no cyanosis, no lower extremity edema, deformity of right ankle secondary to previous trauma and surgery Peripheral pulses: normal pulses Skin: No rashes or pruritus Neurological: Intact cranial nerves with no focal neurologic deficits Case discussed with Dr. Martinez. Goals of care discussed with the patient for over 35 minutes, he states he understands and agrees. Consults/Reason for consult Cardiology was consulted due to heart failure Nephrology was consulted due to CKD Condition at Discharge: Stable Final Diagnosis/Problems List Possible sepsis, likely due to pneumonia ( Gram-positive/Gram-negative ) Possible Acute on Chronic HFrEF, EF < 40% Drug induced cardiomyopathy Questionable COPD, spirometry unavailable, in exacerbation Acute chest pain, ruled out ACS, likley due to PNA Acute intractable abdominal pain, likely due to constipation Right distal DVT Possible LIZ likely due to VMN, on questionable CKD, baseline unavailable Microcytic anemia, likely of chronic disease due to above Hypertensive urgency Hypertension, uncontrolled Methamphetamine use History of CVA History of tobacco use Medical noncompliance Discharge Disposition: Home Discharge Instruct/Medications Diet: Cardiac 2g Na,low cholest Activity: No Restrictions, As Tolerated Follow Up/Referral: Follow up in [place] clinic in 1 week Medications: Augmentin 875 mg BID PO for 3 days Coreg 6.125mg PO daily Apixaban 5 mg PO BID Anoro Ellipta inhaler once daily Nifedipine 30 mg PO daily Lasix 20 mg PO daily Scheduled Amoxicillin & Pot Clavulanate (Augmentin Tablet), 875 MG PO BID Apixaban Base (Eliquis), 5 MG PO BID Carvedilol (Coreg), 6.25 MG PO Q12HR Furosemide (Lasix), 1 TAB PO DAILY Nifedipine (Nifedipine Er), 30 MG PO DAILY Umeclidinium-Vilanterol (Anoro Ellipta 62.5-25 Mcg/INH), 1 AER IN ONCE Discharge Statement: "Patient was advised to return to the ER or call 911 if any headaches, dizziness, shortness of breath, chest pain, abdominal pain, bleeding, fevers, or worsening of medical condition. Patient was counseled about treatment plan, medications, possible side effects, patientverbalized understanding. All questions were answered to the best of my ability. This discharge took greater then 30 minutes in planning, reviewing documentation, counseling the patient, and discussing with other team members." ASSESSMENT ASSESSMENT Assessment Possible sepsis, likely due to pneumonia ( Gram-positive/Gram-negative ) Possible Acute on Chronic HFrEF, EF < 40% Drug induced cardiomyopathy Questionable COPD, spirometry unavailable, in exacerbation Acute chest pain, ruled out ACS, likley due to PNA Acute intractable abdominal pain, likely due to constipation Right distal DVT Possible LIZ likely due to VMN, on questionable CKD, baseline unavailable Microcytic anemia, likely of chronic disease due to above Hypertensive urgency Hypertension, uncontrolled Methamphetamine use History of CVA History of tobacco use Medical noncompliance SPENCER FELDMAN RESIDENT May 14, 2025 16:16
--- NOTE | 2025-05-14 18:48 | DVHPN2 ---
Progress Note Date Seen: May 14, 2025 Medical Necessity Reason Pt with a Central, PICC or Fol: No Subjective Patient reports: No new complaints Review of Systems: Deferred Objective vital signs Vital Sign Date Time Temp Pulse Resp B/P (MAP) Pulse Ox O2 Delivery O2 Flow Rate FiO2 05/14/25 17:00 98.3 73 20 124/87 (99) 97 98.3 05/14/25 12:07 Room Air* 0 21 Total Intake and Output 05/13/25 05/13/25 05/14/25 15:00 23:00 07:00 Intake Total 50 ml 640 ml 400 ml Output Total 2100 ml 2000 ml Balance 50 ml -1460 ml -1600 ml laboratory and microbiology Laboratory Tests 05/14/25 06:11 Test 05/14/25 06:11 Range/Units Serum Glucose 92 74-106 mg/dL Microbiology Date/Time Source Procedure Growth Status 05/08/25 21:24 Voided Urine Urine Culture - Final Complete 05/08/25 17:10 Blood Blood Culture - Final NO GROWTH AFTER 5 DAYS OF INCUBATION. Complete Problem List/Assessment/Plan Problem List/Assessment/Plan Acute kidney injury hemodynamically mediated Chronic kidney disease unspecified most likely advanced stage however baseline is unknown Right DVT Methamphetamine acute use Elevated BNP and pleural effusion highly likely congestive heart failure Bilateral nonobstructing kidney stones Anemia due to chronic kidney disease recs Low-salt diet Fluid restriction Agree with diuretic therapy Plan discussed with: Patient Dietary Evaluation Review Comments: 1) Encourage optimal PO intake 2) Refer to outpatient RD for weight management 3) Follow-up with cardiology and pulmonology 4) Follow-up with social media sr strategy manager r/t methamphetamine abuse 5) Continue to monitor I&O, labs, and skin integrity Expected Outcomes/Goals: 1) appetite and labs to improve 2) f/u in 3-5 days ROSALVA LUCIO MD May 14, 2025 18:48
--- NOTE | 2025-05-14 22:39 | DVHPN2 ---
Progress Note - Dictate Date Seen: May 14, 2025 Medical Necessity Reason Pt with a Central, PICC or Fol: No Subjective Patient was seen and evaluated in follow up. Patient has no new complaints at this time. Patient denies any cardiac symptoms. Patient is cardiac stable for discharge. Telemetry reviewed. vital signs Vital Sign Date Time Temp Pulse Resp B/P (MAP) Pulse Ox O2 Delivery O2 Flow Rate FiO2 05/14/25 17:00 98.3 73 20 124/87 (99) 97 98.3 05/14/25 12:07 Room Air* 0 21 Total Intake and Output 05/13/25 05/13/25 05/14/25 15:00 23:00 07:00 Intake Total 50 ml 640 ml 400 ml Output Total 2100 ml 2000 ml Balance 50 ml -1460 ml -1600 ml objective GENERAL: Alert and oriented x 3. No acute distress. Unkept. EYES: PERRL, EOMI. Anicteric. HENT: Moist mucous membranes. LUNGS: Crackles to bilateral breath sounds. CARDIOVASCULAR: Regular rate and rhythm. ABDOMEN: Soft, non-tender and non-distended. EXTREMITIES: 2+ BLE edema. NEUROLOGIC: No focal neurological deficits. SKIN: Warm, dry. laboratory and microbiology Laboratory Tests 05/14/25 06:11 Test 05/14/25 06:11 Range/Units Serum Glucose 92 74-106 mg/dL Problem List Suspected bilateral pneumonia. Acute on chronic decompensated HFrEF, newly diagnosed, NYHA Class IV. 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 Subacute to chronic RLE thrombus. Likely LIZ on CKD. Acute anemia. Thrombocytosis. Nicotine/methamphetamine dependence. Medical noncompliance. Assessment/Plan Continued all current supportive medical care. Eliquis. IV antibiotics as ordered. Coreg, Nifedipine. Diuretics with Lasix. V Hydralazine for SBP > 170. Morphine for pain management. Nitro SL. GI prophylactics. Additional plan as per the hospital course. Dietary Evaluation Review Comments: 1) Encourage optimal PO intake 2) Refer to outpatient RD for weight management 3) Follow-up with cardiology and pulmonology 4) Follow-up with social work professor r/t methamphetamine abuse 5) Continue to monitor I&O, labs, and skin integrity Expected Outcomes/Goals: 1) appetite and labs to improve 2) f/u in 3-5 days Plan discussed with: Patient FELIX BASSETT MD May 14, 2025 22:39
[2025-05-16] MEDS ORDERED: APIXABAN 5 MG TAB PO SCH (22:00)
== END 2025-05-14 17:00 | disposition home or self-care (01) | DRG 720 ==
LOC: ER 07:28 → OVERFLOW 15:32 → CENTRAL 05-09 16:28 → TELE-CENTR 05-09 19:33
PROVIDERS: ADMIT Internal Medicine Geriatric Medicine; ATTEND Internal Medicine Geriatric Medicine
PROC: 5A09357 Assistance with Respiratory Ventilation, Less than 24 Consecutive Hours, Continuous Positive Airway Pressure (ICD-10-PCS; principal; 2025-05-08)
DX: A41.59 Other Gram-negative sepsis (principal); N17.0 Acute kidney failure with tubular necrosis; I50.23 Acute on chronic systolic (congestive) heart failure; J15.69 Pneumonia due to other Gram-negative bacteria; I42.7 Cardiomyopathy due to drug and external agent; J15.9 Unspecified bacterial pneumonia; I13.0 Hypertensive heart and chronic kidney disease with heart failure and stage 1 through stage 4 chronic kidney disease, or unspecified chronic kidney disease; D63.1 Anemia in chronic kidney disease; I82.451 Acute embolism and thrombosis of right peroneal vein; Z20.822 Contact with and (suspected) exposure to COVID-19; D50.9 Iron deficiency anemia, unspecified; N18.4 Chronic kidney disease, stage 4 (severe); I16.0 Hypertensive urgency; F17.210 Nicotine dependence, cigarettes, uncomplicated; K59.00 Constipation, unspecified; N20.0 Calculus of kidney; D75.839 Thrombocytosis, unspecified; F15.20 Other stimulant dependence, uncomplicated; T50.995A Adverse effect of other drugs, medicaments and biological substances, initial encounter; J44.0 Chronic obstructive pulmonary disease with (acute) lower respiratory infection; Z86.73 Personal history of transient ischemic attack (TIA), and cerebral infarction without residual deficits; Z59.00 Homelessness unspecified; Z91.199 Patient's noncompliance with other medical treatment and regimen due to unspecified reason; Y92.89 Other specified places as the place of occurrence of the external cause; J44.1 Chronic obstructive pulmonary disease with (acute) exacerbation
CPT/HCPCS: 36415; 36600; 71045; 74176; 76775; 78582; 80048; 80053; 80061; 80307; 81001; 82550; 82570; 82728; 82805; 83036; 83540; 83550; 83735; 83880; 84100; 84156; 84443; 84484; 85014; 85018; 85025; 85379; 85610; 85730; 87040; 87086; 87426; 87804; 93005; 93306; 93970; 94640; 96365; 97163; G0378; J1756